=== PATIENT | male | born 1950 | race Caucasian/White ===

== ENCOUNTER 2017-02-13 11:25 | Inpatient (IN) | payer OTHER ==
[~2017-02-13] VITALS: Ht 172.7 cm; Wt 75.7 kg
--- NOTE | 2017-02-13 12:09 | PHYS DOC ---
Past Medical History Past Medical History: No Pertinent History Past Surgical History: No Surgical History Smoking: Cigarettes Alcohol Use: Occasionally Drug Use: None Adult General Chief Complaint Chief Complaint: SHORTNESS OF BREATH HPI HPI Patient is a 66 year old presents with right-sided chest pain and shortness of breath. This is a pleasant 66-year-old male who denies significant past medical history who presents with shortness of breath since Friday. He has been having a low-grade fever on Friday. He did not take his temperature however; the pain in the right side is constant. He has dyspnea on exertion. He has no pain in his extremities. It's constant, worse with cough. Radiate to his jaw or to his left shoulder. He does have a strong smoking history. He denies history of recent pneumonia. He denies sick contacts. He denies strong family history of coronary artery disease. His PMD is Dr. Lopes whom he has never seen. Review of Systems Review of Systems Constitutional: Feels as if he has had fever. Eyes: Denies change in visual acuity, redness, or eye pain./ HENT: Denies nasal congestion or sore throat. Respiratory: Cough which is non productuve. Cardiovascular: No additional information not addressed in HPI. GI: Denies abdominal pain, nausea, vomiting, bloody stools or diarrhea. : Denies dysuria or hematuria. Musculoskeletal: Denies back pain or joint pain. Integument: Denies rash or skin lesions. Neurologic: Denies headache, focal weakness or sensory changes. Endocrine: Denies polyuria or polydipsia. All other systems were reviewed and found to be within normal limits, except as documented in this note. Family History Family History No fam hx of CAD. Current Medications Current Medications Current Medications Medications (Trade) Dose Ordered Sig/Elly Start Time Stop Time Status Last Admin Dose Admin Albuterol Sulfate (Ventolin Neb Soln) 2.5 mg STK-MED ONCE 02/13/17 12:16 02/13/17 12:17 DC Azithromycin 250 ml @ 250 mls/hr 1X ONCE 02/13/17 13:00 02/13/17 13:59 DC 02/13/17 13:56 250 MLS/HR Ceftriaxone Sodium 50 ml @ 100 mls/hr 1X ONCE 02/13/17 13:00 02/13/17 13:29 DC 02/13/17 15:02 100 MLS/HR Allergies Allergies Allergies Coded Allergies Type Severity Reaction Last Updated Verified No Known Drug Allergies 02/13/17 No Physical Exam Physical Exam Constitutional: Well developed, well nourished, no acute distress, non-toxic appearance. HENT: Normocephalic, atraumatic, bilateral external ears normal, oropharynx moist, no oral exudates, nose normal. Eyes: PERRLA, EOMI, conjunctiva normal, no discharge. Neck: Normal range of motion, no tenderness, supple, no stridor. Cardiovascular:Heart rate regular rhythm, no murmur Lungs & Thorax: Bilateral breath sounds clear to auscultation. I do not appreciate wheezing or rales or rhonchi. Abdomen: Bowel sounds normal, soft, no tenderness, no masses, no pulsatile masses. Skin: Warm, dry, no erythema, no rash other than some rosacea to the nose. Back: No tenderness, no CVA tenderness. Extremities: No tenderness, no cyanosis, no clubbing, ROM intact, no edema. Nicotine stains tot he left 2 and 3 fingers. Neurologic: Alert and oriented X 3, normal motor function, normal sensory function, no focal deficits noted. Psychologic: Affect normal, judgement normal, mood normal. Current Patient Data Vital Signs Vital Signs Date Time Temp Pulse Resp B/P (MAP) Pulse Ox O2 Delivery O2 Flow Rate FiO2 02/13/17 13:58 99 28 95/60 (72) 90 Nasal Cannula 4.0 02/13/17 11:32 98.0 98.0 Lab Values Laboratory Tests Test 02/13/17 11:50 White Blood Count 34.8 x10^3/uL (4.0-11.0) H Red Blood Count 5.01 x10^6/uL (4.30-5.70) Hemoglobin 15.0 g/dL (13.0-17.5) Hematocrit 45.5 % (39.0-53.0) Mean Corpuscular Volume 91 fL (79-100) Mean Corpuscular Hemoglobin 30 pg (25-35) Mean Corpuscular Hemoglobin Concent 33 g/dL (31-37) Red Cell Distribution Width 13.8 % (11.5-14.5) Platelet Count 264 x10^3/uL (140-400) Neutrophils (%) (Auto) 93 % (31-73) H Lymphocytes (%) (Auto) 4 % (24-48) L Monocytes (%) (Auto) 3 % (0-9) Eosinophils (%) (Auto) 0 % (0-3) Basophils (%) (Auto) 0 % (0-3) Neutrophils # (Auto) 32.2 x10^3uL (1.8-7.7) H Lymphocytes # (Auto) 1.5 x10^3/uL (1.0-4.8) Monocytes # (Auto) 1.1 x10^3/uL (0.0-1.1) Eosinophils # (Auto) 0.0 x10^3/uL (0.0-0.7) Basophils # (Auto) 0.1 x10^3/uL (0.0-0.2) Segmented Neutrophils % 64 % (35-66) Band Neutrophils % 18 % (0-9) H Lymphocytes % 4 % (24-48) L Monocytes % 8 % (0-10) Metamyelocytes % 6 % (0-0) H Dohle Bodies Present Platelet Estimate Adequate (ADEQUATE) D-Dimer (Samantha) 1.36 ug/mlFEU (0.00-0.50) H Sodium Level 133 mmol/L (136-145) L Potassium Level 4.2 mmol/L (3.5-5.1) Chloride Level 96 mmol/L (98-107) L Carbon Dioxide Level 26 mmol/L (21-32) Anion Gap 11 (6-14) Blood Urea Nitrogen 31 mg/dL (8-26) H Creatinine 1.8 mg/dL (0.7-1.3) H Estimated GFR (Cockcroft-Gault) 37.9 BUN/Creatinine Ratio 17 (6-20) Glucose Level 97 mg/dL (70-99) Lactic Acid Level 3.5 mmol/L (0.4-2.0) H Calcium Level 8.8 mg/dL (8.5-10.1) Total Bilirubin 0.8 mg/dL (0.2-1.0) Aspartate Amino Transferase (AST) 21 U/L (15-37) Alanine Aminotransferase (ALT) 17 U/L (16-63) Alkaline Phosphatase 84 U/L (46-116) Troponin I Quantitative < 0.017 ng/mL (0.000-0.055) FW-Fmu-W-Type Natriuretic Peptide 978 pg/mL (0-124) H Total Protein 7.5 g/dL (6.4-8.2) Albumin 3.0 g/dL (3.4-5.0) L Albumin/Globulin Ratio 0.7 (1.0-1.7) L Lipase 54 U/L (73-393) L Laboratory Tests 02/13/17 11:50 Laboratory Tests 02/13/17 11:50 Microbiology 02/13/17 Blood Culture - Final, Complete EKG EKG NSR with LAD; rate of 97. No STEMI or ischemic changes. Done at 1132; int by m e at 12:05[] Radiology/Procedures Radiology/Procedures CXR RUL pneumonia int by radiologist[] Course & Med Decision Making Course & Med Decision Making Pertinent Labs and Imaging studies reviewed. (See chart for details) 12:10: Right sided CP with SOB and cough. WIll proceed with cardiac workup, will add d-dimer and xray. Will ask for RT protocol to see ig this helps, despite rather clear lung exam. Additionally will add BNP to assess for CHF, although he does not have any clinical stigmata of CHF on exam.[] RUL pneumonia. There is elevated lactic acid level however less than 4. I have initiated NS 2 L and will discuss with admitting team need for repeat lactic acid. Patient remains conversant and stable in the ER. 1543: D/W Dr. Florence who will follow up and trend lactic acid level. Dx: is pneumonia Britni Disclaimer Britni Disclaimer This electronic medical record was generated, in whole or in part, using a voice recognition dictation system. Departure Departure Referrals: NON,STAFF (PCP) JAMIE BATRES MD Feb 13, 2017 12:09
[2017-02-13 12:12] LABS: BASO # 0.1 x10^3/uL (0.0-0.2); BASO % 0 % (0-3); EOS % 0 % (0-3); HEMATOCRIT 45.5 % (39.0-53.0); LYMPH # 1.5 x10^3/uL (1.0-4.8); LYMPH % 4 % (24-48); MEAN CORPUSCULAR HEMOGLOBIN 30 pg (25-35); MEAN CORPUSCULAR HGB CONC 33 g/dL (31-37); MEAN CORPUSCULAR VOLUME 91 fL (79-100); MONO % 3 % (0-9); NEUT % 93 % (31-73); PLATELET COUNT 264 x10^3/uL (140-400); RED BLOOD COUNT 5.01 x10^6/uL (4.30-5.70); RED CELL DISTRIBUTION WIDTH 13.8 % (11.5-14.5); WHITE BLOOD COUNT 34.8 x10^3/uL (4.0-11.0)
[2017-02-13] MEDS ORDERED: ALBUTEROL SULFATE 2.5 MG/3 ML NEBU. NEB ONE (12:15)
[2017-02-13] MEDS ORDERED: ALBUTEROL SULFATE 2.5 MG/3 ML NEBU. ONE (12:16)
[2017-02-13 12:30] LABS: CALCIUM 8.8 mg/dL (8.5-10.1); CREATININE 1.8 mg/dL (0.7-1.3); GFR 37.9; POTASSIUM 4.2 mmol/L (3.5-5.1)
[2017-02-13 12:35] LABS: ALBUMIN/GLOBULIN RATIO 0.7 (1.0-1.7); TOTAL BILIRUBIN 0.8 mg/dL (0.2-1.0); TOTAL PROTEIN 7.5 g/dL (6.4-8.2)
--- NOTE | 2017-02-13 12:57 | RAD ---
Indication: Right chest pain for 3 days. Productive cough. Technique: Two-view chest radiograph was obtained. Comparison is from August 29, 2005. Findings: Right upper lobe consolidation is new from prior. There is mild right hilar fullness. Left lung is clear. There is no pleural effusion. Heart is not enlarged. Leads overlie the patient. Impression: Right upper lobe consolidation most compatible with pneumonia. Follow-up to document resolution is recommended to exclude underlying lesion or central obstructing lesion.
[2017-02-13] MEDS ORDERED: AZITHRMYCN 500MG IVPB FOR OMNI 250 ML IV ONE (13:00)
[2017-02-13 13:02] LABS: PLT ESTIMATE ADEQUATE (ADEQUATE)
--- NOTE | 2017-02-13 13:15 | EKG ---
[facility] [address] [place] [address] Test Date: 2017-02-13 Test Time: 11:32:11 Pat Name: ROSALINDA INMAN Department: Room: Gender: Adult Specialist: DC : 1950 Requested By: JAMIE BATRES Order Number: [id number] Reading MD: Aaron Tuttle MD Measurements Intervals [place] Rate: 97 P: 35 GA: 146 QRS: -30 QRSD: 78 T: 52 QT: 312 QTc: 400 Interpretive Statements SINUS RHYTHM NON-SPECIFIC ST/T CHANGES Electronically Signed On 02-18-2017 14:40:03 DIRECTOR SAFETY COUNCIL by Aaron Tuttle MD
[2017-02-13] MEDS: IV NORMAL SALINE 1000ML BAG 1,000 ML IV SCH ×2 (15:08→16:12)
[2017-02-13] MEDS: IBUPROFEN 400 MG TABLET. PO PRN ×2 (15:50→22:41)
[2017-02-13 16:00] VITALS: BP 100/65
[2017-02-13] MEDS ORDERED: PNEUMOCOCCAL VAX SCREEN BY RX. MC PRN (17:45)
[2017-02-13] MEDS ORDERED: INFLUENZA VAX SCREEN BY RX. MC PRN (17:45)
[2017-02-13] MEDS ORDERED: FLU VACC QS2017-18 (36MOS+)/PF 0.5 ML SYRINGE. VAX IM ONE (18:00)
--- NOTE | 2017-02-13 19:27 | HP ---
ADMIT DATE: 02/13/2017 CHIEF COMPLAINT: Shortness of breath. HISTORY OF PRESENT ILLNESS: The patient is a 66-year-old smoker without any medical problems who presented to the Emergency Room with a 4-day history of shortness of breath. He relates that he became more short of breath on Friday with cough productive of yellowish sputum. Also, had subjective fevers and chills and noticed that in the beginning, he actually had shoulder pain in the area of his clavicle. This actually slipped down anteriorly on his chest wall, is worse with deep breathing. This has responded well to ibuprofen that he received here in the hospital. In the Emergency Room, he was evaluated and x-ray revealed right upper lobe consolidation and he was admitted for treatment of pneumonia. PAST MEDICAL HISTORY: None. Has not seen a physician for many years. FAMILY HISTORY: No heart disease or lung disease known. 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 Smokes 1-1/2 packs a day. Denies any alcohol or drug use. ALLERGIES: No known drug allergies. HOME MEDICATIONS: None. REVIEW OF SYSTEMS: Positive as per HPI. He denies any nausea, vomiting, abdominal pain, any headaches, vision problems. Rest of his entire organ system review is answered negatively as well. PHYSICAL EXAMINATION: VITAL SIGNS: From today show a blood pressure of 100/65, heart rate of 101, respiratory rate at 26. He is afebrile. GENERAL: This is a well-nourished 66-year-old gentleman, alert and oriented, in no acute distress. HEENT: Shows no scleral icterus. NECK: Supple. LUNGS: Coarse, but with good air movement. HEART: Slightly tachycardic. ABDOMEN: Has positive bowel sounds, soft, nontender. EXTREMITIES: Show no edema, no clubbing, no cyanosis. SKIN: Warm, soft and dry without any rash. LABORATORY DATA: CBC with a WBC of 34.8, hemoglobin 15, platelets of 264. Chemistries with a BUN and creatinine of 31 and 1.8, sodium at 133, potassium at 4.3, lactate at 3.5, on repeat 2.3, albumin at 3.0 with normal LFTs otherwise. IMAGING: Shows a chest x-ray with a right upper lobe consolidation, right hilar fullness. Left lung is clear. ASSESSMENT AND PLAN: The patient is a 66-year-old smoker who presents with right upper lobe pneumonia. He has been started on antibiotics with ceftriaxone and azithromycin. We will continue for the time being. For his pleuritis type chest pain, he has been given ibuprofen with good results. We will continue this. He may have [place] as well as a second choice. We will start nebulizer treatments. Hold off on steroids for the time being. Monitor his WBC, which actually indicates good response of his bone marrow. We will consult Pulmonology in the morning. For his smoking, he declines patch for right now. He has been counseled about cessation of tobacco use. For prophylaxis, he will be started on proton pump inhibitor as well as Lovenox. MARYANNE SINGH MD DR: UR/nts JOB#: [id number] / [id number] MEL
[2017-02-13 19:30] VITALS: BP 84/58
[2017-02-13] MEDS: IPRATRPIUM/ALBUTEROL 0.5/2.5MG 3 ML NEBU. NEB SCH (20:03)
[2017-02-13 23:30] VITALS: BP 82/57
[2017-02-14 03:30] VITALS: BP 99/69
[2017-02-14 05:33] LABS: BASO # 0.1 x10^3/uL (0.0-0.2); BASO % 0 % (0-3); EOS % 0 % (0-3); HEMATOCRIT 39.3 % (39.0-53.0); HEMOGLOBIN 12.6 g/dL (13.0-17.5); LYMPH # 1.1 x10^3/uL (1.0-4.8); LYMPH % 4 % (24-48); MEAN CORPUSCULAR HEMOGLOBIN 30 pg (25-35); MEAN CORPUSCULAR HGB CONC 32 g/dL (31-37); MEAN CORPUSCULAR VOLUME 93 fL (79-100); MONO % 3 % (0-9); NEUT % 93 % (31-73); PLATELET COUNT 213 x10^3/uL (140-400); RED BLOOD COUNT 4.23 x10^6/uL (4.30-5.70); RED CELL DISTRIBUTION WIDTH 14.1 % (11.5-14.5); WHITE BLOOD COUNT 30.8 x10^3/uL (4.0-11.0)
[2017-02-14 06:10] LABS: CALCIUM 7.9 mg/dL (8.5-10.1); CREATININE 1.4 mg/dL (0.7-1.3); GFR 50.7
[2017-02-14 07:00] VITALS: BP 90/60
[2017-02-14 07:22] LABS: CALCIUM 8.3 mg/dL (8.5-10.1)
[2017-02-14 07:23] LABS: CREATININE 0.9 mg/dL (0.7-1.3); GFR 84.4; POTASSIUM 4.1 mmol/L (3.5-5.1)
[2017-02-14] MEDS: IPRATRPIUM/ALBUTEROL 0.5/2.5MG 3 ML NEBU. NEB SCH ×4 (08:30→20:21)
[2017-02-14] MEDS ORDERED: VANCOMYCIN PER PHARMACY MC PRN (08:45)
[2017-02-14] MEDS ORDERED: VANCOMYCIN 1.75 GM in IV DEXTROSE 5 %-0.45 % NACL 500 ML IV ONE (09:00)
--- NOTE | 2017-02-14 10:03 | PDOC ---
Infectious Disease Note Vital Sign Vital Signs Vital Signs Date Time Temp Pulse Resp B/P (MAP) Pulse Ox O2 Delivery O2 Flow Rate FiO2 02/14/17 08:32 96 Nasal Cannula 3.5 02/14/17 07:00 97.5 80 18 90/60 (70) 97.5 Labs Lab Laboratory Tests Test 02/13/17 11:50 02/13/17 17:45 02/14/17 05:15 02/14/17 06:16 White Blood Count 34.8 x10^3/uL (4.0-11.0) 30.8 x10^3/uL (4.0-11.0) Red Blood Count 5.01 x10^6/uL (4.30-5.70) 4.23 x10^6/uL (4.30-5.70) Hemoglobin 15.0 g/dL (13.0-17.5) 12.6 g/dL (13.0-17.5) Hematocrit 45.5 % (39.0-53.0) 39.3 % (39.0-53.0) Mean Corpuscular Volume 91 fL (79-100) 93 fL (79-100) Mean Corpuscular Hemoglobin 30 pg (25-35) 30 pg (25-35) Mean Corpuscular Hemoglobin Concent 33 g/dL (31-37) 32 g/dL (31-37) Red Cell Distribution Width 13.8 % (11.5-14.5) 14.1 % (11.5-14.5) Platelet Count 264 x10^3/uL (140-400) 213 x10^3/uL (140-400) Neutrophils (%) (Auto) 93 % (31-73) 93 % (31-73) Lymphocytes (%) (Auto) 4 % (24-48) 4 % (24-48) Monocytes (%) (Auto) 3 % (0-9) 3 % (0-9) Eosinophils (%) (Auto) 0 % (0-3) 0 % (0-3) Basophils (%) (Auto) 0 % (0-3) 0 % (0-3) Neutrophils # (Auto) 32.2 x10^3uL (1.8-7.7) 28.7 x10^3uL (1.8-7.7) Lymphocytes # (Auto) 1.5 x10^3/uL (1.0-4.8) 1.1 x10^3/uL (1.0-4.8) Monocytes # (Auto) 1.1 x10^3/uL (0.0-1.1) 0.9 x10^3/uL (0.0-1.1) Eosinophils # (Auto) 0.0 x10^3/uL (0.0-0.7) 0.0 x10^3/uL (0.0-0.7) Basophils # (Auto) 0.1 x10^3/uL (0.0-0.2) 0.1 x10^3/uL (0.0-0.2) Segmented Neutrophils % 64 % (35-66) Band Neutrophils % 18 % (0-9) Lymphocytes % 4 % (24-48) Monocytes % 8 % (0-10) Metamyelocytes % 6 % (0-0) Dohle Bodies Present Platelet Estimate Adequate (ADEQUATE) D-Dimer (Samantha) 1.36 ug/mlFEU (0.00-0.50) Sodium Level 133 mmol/L (136-145) 137 mmol/L (136-145) Potassium Level 4.2 mmol/L (3.5-5.1) 4.0 mmol/L (3.5-5.1) Chloride Level 96 mmol/L (98-107) 99 mmol/L (98-107) Carbon Dioxide Level 26 mmol/L (21-32) 21 mmol/L (21-32) Anion Gap 11 (6-14) 17 (6-14) Blood Urea Nitrogen 31 mg/dL (8-26) 33 mg/dL (8-26) Creatinine 1.8 mg/dL (0.7-1.3) 1.4 mg/dL (0.7-1.3) Estimated GFR (Cockcroft-Gault) 37.9 50.7 BUN/Creatinine Ratio 17 (6-20) Glucose Level 97 mg/dL (70-99) 14 mg/dL (70-99) Lactic Acid Level 3.5 mmol/L (0.4-2.0) 2.3 mmol/L (0.4-2.0) Calcium Level 8.8 mg/dL (8.5-10.1) 7.9 mg/dL (8.5-10.1) Total Bilirubin 0.8 mg/dL (0.2-1.0) Aspartate Amino Transf (AST/SGOT) 21 U/L (15-37) Alanine Aminotransferase (ALT/SGPT) 17 U/L (16-63) Alkaline Phosphatase 84 U/L (46-116) Troponin I Quantitative < 0.017 ng/mL (0.000-0.055) PU-Dhp-R-Type Natriuretic Peptide 978 pg/mL (0-124) Total Protein 7.5 g/dL (6.4-8.2) Albumin 3.0 g/dL (3.4-5.0) Albumin/Globulin Ratio 0.7 (1.0-1.7) Lipase 54 U/L (73-393) Glucose (Fingerstick) 90 mg/dL (70-99) Test 02/14/17 06:45 Sodium Level 139 mmol/L (136-145) Potassium Level 4.1 mmol/L (3.5-5.1) Chloride Level 104 mmol/L (98-107) Carbon Dioxide Level 23 mmol/L (21-32) Anion Gap 12 (6-14) Blood Urea Nitrogen 26 mg/dL (8-26) Creatinine 0.9 mg/dL (0.7-1.3) Estimated GFR (Cockcroft-Gault) 84.4 Glucose Level 98 mg/dL (70-99) Calcium Level 8.3 mg/dL (8.5-10.1) Objective Assessment CAP Leukocytosis Smoker Fever Hypoxia BC + with G + cocci , strep Plan Plan of Care cont fidencio and danny claros/ady robbinsro await culture results and adjust supportive care adv to quit smoking DELORIS JOE MD Feb 14, 2017 10:03
[2017-02-14 11:00] VITALS: BP 97/64
[2017-02-14] MEDS: NICOTINE 21MG PATCH. TD SCH (11:13)
--- NOTE | 2017-02-14 13:52 | PDOC ---
PROGRESS NOTES Chief Complaint Chief Complaint Acute hypoxic respir failure ASSESSMENT AND PLAN: 1. [facility] PNA: on levaquin; nebs, suppl O2 2. Bacteremia: GPC in 03/06 bottles. ?contaminant. for now, start vanco. ID consult. await final culture 3. Chest pain: pleuritis, responding well to NSAIDs. [place] available 4. Leukocytosis: exuberant response. monitor 5. tobaccoism: nicotine patch. cessation again strongly encouraged 6. prevention: lovenox, PPI History of Present Illness History of Present Illness feels better, eager to go home. pleuritic CP responding to ibuprofen Vitals Vitals Vital Signs Date Time Temp Pulse Resp B/P (MAP) Pulse Ox O2 Delivery O2 Flow Rate FiO2 02/14/17 12: Nasal Cannula 3.5 02/14/17 11:00 98.0 80 18 97/64 (75) 95 98.0 Physical Exam General: Alert, Oriented X3, Cooperative, No acute distress Heart: Regular rate Lungs: Crackles Abdomen: Normal bowel sounds, Soft, No tenderness Extremities: No edema Skin: No rashes Labs LABS Laboratory Tests Test 02/13/17 17:45 02/14/17 05:15 02/14/17 06:16 02/14/17 06:45 Lactic Acid Level 2.3 mmol/L (0.4-2.0) White Blood Count 30.8 x10^3/uL (4.0-11.0) Red Blood Count 4.23 x10^6/uL (4.30-5.70) Hemoglobin 12.6 g/dL (13.0-17.5) Hematocrit 39.3 % (39.0-53.0) Mean Corpuscular Volume 93 fL (79-100) Mean Corpuscular Hemoglobin 30 pg (25-35) Mean Corpuscular Hemoglobin Concent 32 g/dL (31-37) Red Cell Distribution Width 14.1 % (11.5-14.5) Platelet Count 213 x10^3/uL (140-400) Neutrophils (%) (Auto) 93 % (31-73) Lymphocytes (%) (Auto) 4 % (24-48) Monocytes (%) (Auto) 3 % (0-9) Eosinophils (%) (Auto) 0 % (0-3) Basophils (%) (Auto) 0 % (0-3) Neutrophils # (Auto) 28.7 x10^3uL (1.8-7.7) Lymphocytes # (Auto) 1.1 x10^3/uL (1.0-4.8) Monocytes # (Auto) 0.9 x10^3/uL (0.0-1.1) Eosinophils # (Auto) 0.0 x10^3/uL (0.0-0.7) Basophils # (Auto) 0.1 x10^3/uL (0.0-0.2) Sodium Level 137 mmol/L (136-145) 139 mmol/L (136-145) Potassium Level 4.0 mmol/L (3.5-5.1) 4.1 mmol/L (3.5-5.1) Chloride Level 99 mmol/L (98-107) 104 mmol/L (98-107) Carbon Dioxide Level 21 mmol/L (21-32) 23 mmol/L (21-32) Anion Gap 17 (6-14) 12 (6-14) Blood Urea Nitrogen 33 mg/dL (8-26) 26 mg/dL (8-26) Creatinine 1.4 mg/dL (0.7-1.3) 0.9 mg/dL (0.7-1.3) Estimated GFR (Cockcroft-Gault) 50.7 84.4 Glucose Level 14 mg/dL (70-99) 98 mg/dL (70-99) Calcium Level 7.9 mg/dL (8.5-10.1) 8.3 mg/dL (8.5-10.1) Glucose (Fingerstick) 90 mg/dL (70-99) MARYANNE SINGH MD Feb 14, 2017 13:52
--- NOTE | 2017-02-14 14:17 | CONS ---
DATE OF CONSULTATION: ATTENDING PHYSICIAN: Dr. Florence. REASON FOR CONSULTATION: Pneumonia, respiratory failure. HISTORY OF PRESENT ILLNESS: The patient is a 66-year-old male who has a long history of tobacco use. He presented to the hospital with a 4-day history of shortness of breath. He also has a cough which is productive of yellow sputum. He has some subjective fever at home. The patient was also complaining of shoulder pain. He had a chest x-ray performed, which was reviewed by me and it shows consolidation in the right upper lobe and also some right hilar fullness. He denied any chronicity of the cough, denied any weight loss or night sweats. The patient's white cell count was markedly elevated on admission, was 34,000, which is now slowly down to 30,000. He also had a glucose of 40, now it is 98 and a BUN of 33 and creatinine of 1.0, which is responding to fluids. PAST MEDICAL HISTORY: Significant for suspected COPD. SOCIAL HISTORY: He smoked 1-1/2 packs per day for at least 35-40 years. No history of alcohol or drug use. PAST SURGICAL HISTORY: No recent surgeries. ALLERGIES: None. CURRENT MEDICATIONS: Reviewed as listed in the MRAD. REVIEW OF SYSTEMS: A 12-point system obtained. Pertinent positives discussed in history of present illness, otherwise noncontributory. All systems that were negative were reviewed as well. He has no headache, no nausea or vomiting, no diarrhea. Had no weight loss. PHYSICAL EXAMINATION: VITAL SIGNS: He is afebrile. His blood pressure was 82, now it is 97/64, pulse ox 95% on 4 liters. HEENT: Sclerae nonicteric. NECK: Supple. LUNGS: Diminished breath sounds. CARDIOVASCULAR: Regular rate and rhythm. ABDOMEN: Soft, nontender. EXTREMITIES: With no pitting edema. LABORATORY DATA: Reviewed. White cell count was 34.8, now it is trending down to 31. BUN and creatinine is improving as well. Calcium is 7.9. IMPRESSION: 1. Community-acquired extensive right upper lobe pneumonia. 2. Acute hypoxic respiratory failure secondary to community-acquired pneumonia. 3. Abnormal chest x-ray with right upper lobe consolidation, right hilar fullness. Less likely postobstructive process, but we will do a CT chest with contrast. 4. Suspected underlying chronic obstructive pulmonary disease. 5. Bacteremia, suspected strep. RECOMMENDATIONS: 1. Continue with present broad-spectrum antibiotics. 2. Consider Infectious Disease consultation. 3. CT chest to rule out any right hilar mass. 4. We will follow the response to antibiotics with chest x-ray in 3-4 days. 5. Bronchodilators. 6. Outpatient full pulmonary function test. 7. Smoking cessation counseling provided. 8. Discussed with the patient's and will follow along with you. FLORINA VILLALTA MD DR: VIRIDIANA/diego JOB#: [id number] / [id number]
[2017-02-14] MEDS ORDERED: CONTRAST GIVEN MC PRN (14:30)
[2017-02-14] MEDS ORDERED: IOHEXOL 300 MG/ML 100ML VIAL. IV ONE (14:30)
[2017-02-14] MEDS: IBUPROFEN 400 MG TABLET. PO PRN ×2 (14:48→20:51)
--- NOTE | 2017-02-14 15:14 | RAD ---
CT of the chest with contrast, 02/14/2017: History: Pneumonia, respiratory failure, right hilar mass Multidetector CT imaging was performed following an IV bolus injection of iodinated contrast material. There is extensive pulmonary infiltrate in the inferior aspect of the right upper lobe. There are multiple air bronchograms. The central right upper lobe bronchi do not appear obstructed. There is a lesser degree of infiltrate in the superior aspect of the right middle lobe. A small right pleural effusion is present. There is moderate atelectasis in the right lower lobe. Emphysematous blebs and small bullae are present in both lungs. No significant left pulmonary infiltrate or pleural fluid is evident. There are scattered calcific plaques in the aorta without evidence of aneurysm. The ascending aorta measures 3.9 cm in width. A couple of minimal coronary artery calcifications are noted. Precarinal and subcarinal lymph nodes of borderline size are noted. The largest of these demonstrate a short axis dimension of approximately 10 mm. IMPRESSION: 1. Extensive right lung infiltrate with dominant involvement of the right upper lobe, compatible with pneumonia. No centrally obstructing mass is seen. Further imaging follow-up is suggested to exclude an occult neoplasm. 2. Small right pleural effusion with moderate right basilar atelectasis. 3. Emphysema. 4. Borderline enlarged mediastinal lymph nodes are probably reactive. PQRS Compliance Statement: One or more of the following individualized dose reduction techniques were utilized for this examination: 1. Automated exposure control 2. Adjustment of the mA and/or kV according to patient size 3. Use of iterative reconstruction technique
[2017-02-14] MEDS ORDERED: AZITHROMYCIN 500 MG in IV NORMAL SALINE 250ML 250 ML IV SCH (16:00)
[2017-02-14 16:13] VITALS: BP 98/64
--- NOTE | 2017-02-14 17:22 | CONS ---
DATE OF CONSULTATION: 02/14/2017 REQUESTING PHYSICIAN: Dr. Florence. REASON FOR CONSULTATION: Pneumonia and blood culture positive. HISTORY OF PRESENT ILLNESS: This is a 66-year-old gentleman who does not go to the doctor's office who came in with right-sided chest pain, little bit of shortness of breath. He has had fever at home. The patient was found to have pneumonia, admitted, started on azithromycin, Rocephin was given and then Levaquin has been put on. The blood culture turned positive, hence the vancomycin has been added. The patient denies any nausea, vomiting, diarrhea. Denies any headache, visual symptoms. He does have chest pain. He does have shortness of breath. He has been hypoxic requiring oxygen support. Denies any abdominal pain, urinary symptoms or bowel symptoms. PAST MEDICAL HISTORY: Essentially unremarkable as he has never been into the hospital. He does not go regularly to the doctor's office. He does not remember when was the last time he had any antibiotics. SOCIAL HISTORY: Positive for smoking. No alcohol use or drug use. ALLERGIES: No known drug allergies. CURRENT MEDICATIONS: Reviewed. REVIEW OF SYSTEMS: As per HPI, all other systems reviewed and are negative. PHYSICAL EXAMINATION: GENERAL: Alert, oriented gentleman, not in distress. VITAL SIGNS: Stable, afebrile here. HEENT: NAD. NECK: Supple, no JVP, no lymphadenopathy. LUNGS: Clear. HEART: S1, S2 regular. No gallop or murmur. ABDOMEN: Soft, nontender, no organomegaly. EXTREMITIES: No edema, cyanosis. SKIN: Unremarkable. NEUROLOGIC: The patient is neurologically intact. LABORATORY DATA: White count is 34,000 when he came in, now down to 30,000. BUN and creatinine is normal, although they were higher when he came in. Glucose was low. Blood culture 1 out of 4 positive with Gram-positive cocci in chains. Chest x-ray is showing extensive right upper lobe infiltrate. IMPRESSION: 1. Community-acquired pneumonia. 2. Fever and leukocytosis. 3. Hypoxemia. 4. Tobaccoism. 5. Dehydration with elevated BUN and creatinine, which is improving. RECOMMENDATION: Would continue Levaquin and vancomycin. We will discontinue azithromycin and Rocephin has been discontinued. We will await identification of the organism and adjust breathing treatment to open up to be able to get the sputum out. Supportive care and strongly advised to quit smoking. Thank you very much, Dr. Florence, for giving me the opportunity to participate in this patient's care. DELORIS JOE MD DR: ALETHEA/diego JOB#: [id number] / [id number]
[2017-02-14 19:46] VITALS: BP 114/74
[2017-02-14] MEDS: LACTOBACILLUS RHAMNOSUS GG 1 CAPSULE. PO SCH (20:51)
[2017-02-14] MEDS: VANCOMYCIN 1 GM in IV 1/2 NORMAL SALINE 250 ML IV SCH (20:54)
[2017-02-14 23:57] VITALS: BP 125/85
[2017-02-15 03:51] VITALS: BP 112/65
[2017-02-15 07:00] VITALS: BP 132/73
[2017-02-15 07:40] LABS: BASO % 0 % (0-3); EOS % 1 % (0-3); HEMATOCRIT 37.8 % (39.0-53.0); HEMOGLOBIN 12.5 g/dL (13.0-17.5); LYMPH # 1.6 x10^3/uL (1.0-4.8); LYMPH % 11 % (24-48); MEAN CORPUSCULAR HEMOGLOBIN 30 pg (25-35); MEAN CORPUSCULAR HGB CONC 33 g/dL (31-37); MEAN CORPUSCULAR VOLUME 90 fL (79-100); MONO % 8 % (0-9); NEUT % 81 % (31-73); PLATELET COUNT 252 x10^3/uL (140-400); RED BLOOD COUNT 4.22 x10^6/uL (4.30-5.70); RED CELL DISTRIBUTION WIDTH 13.6 % (11.5-14.5); WHITE BLOOD COUNT 15.4 x10^3/uL (4.0-11.0)
[2017-02-15 07:57] LABS: CALCIUM 8.5 mg/dL (8.5-10.1); CREATININE 0.8 mg/dL (0.7-1.3); GFR 96.7; POTASSIUM 3.7 mmol/L (3.5-5.1)
[2017-02-15] MEDS: IPRATRPIUM/ALBUTEROL 0.5/2.5MG 3 ML NEBU. NEB SCH ×5 (08:16→19:49)
[2017-02-15] MEDS: LACTOBACILLUS RHAMNOSUS GG 1 CAPSULE. PO SCH ×2 (08:54→21:40)
[2017-02-15] MEDS: NICOTINE 21MG PATCH. TD SCH (08:55)
[2017-02-15] MEDS: VANCOMYCIN 1 GM in IV 1/2 NORMAL SALINE 250 ML IV SCH (08:56)
[2017-02-15] MEDS ORDERED: CIPR500T94 PO ×2 (09:54→09:59)
[2017-02-15] MEDS ORDERED: IPRA4AER IH (09:54)
--- NOTE | 2017-02-15 10:23 | PDOC ---
PULMONARY PROGRESS NOTES Subjective feels better Vitals Vital Signs Date Time Temp Pulse Resp B/P (MAP) Pulse Ox O2 Delivery O2 Flow Rate FiO2 02/15/17 08:10 98 Nasal Cannula 3.5 02/15/17 07:00 97.3 83 18 132/73 (92) 97.3 ROS: No Nausea, No Chest Pain, No Abdominal Pain, No Increase Cough General: Alert, No acute distress Lungs: Other (decrease right) Cardiovascular: S1 Abdomen: Soft Neuro Exam: Alert Extremities: No Edema Skin: Warm Labs Laboratory Tests Test 02/13/17 11:50 02/13/17 17:45 02/14/17 05:15 02/14/17 06:16 White Blood Count 34.8 x10^3/uL (4.0-11.0) 30.8 x10^3/uL (4.0-11.0) Red Blood Count 5.01 x10^6/uL (4.30-5.70) 4.23 x10^6/uL (4.30-5.70) Hemoglobin 15.0 g/dL (13.0-17.5) 12.6 g/dL (13.0-17.5) Hematocrit 45.5 % (39.0-53.0) 39.3 % (39.0-53.0) Mean Corpuscular Volume 91 fL (79-100) 93 fL (79-100) Mean Corpuscular Hemoglobin 30 pg (25-35) 30 pg (25-35) Mean Corpuscular Hemoglobin Concent 33 g/dL (31-37) 32 g/dL (31-37) Red Cell Distribution Width 13.8 % (11.5-14.5) 14.1 % (11.5-14.5) Platelet Count 264 x10^3/uL (140-400) 213 x10^3/uL (140-400) Neutrophils (%) (Auto) 93 % (31-73) 93 % (31-73) Lymphocytes (%) (Auto) 4 % (24-48) 4 % (24-48) Monocytes (%) (Auto) 3 % (0-9) 3 % (0-9) Eosinophils (%) (Auto) 0 % (0-3) 0 % (0-3) Basophils (%) (Auto) 0 % (0-3) 0 % (0-3) Neutrophils # (Auto) 32.2 x10^3uL (1.8-7.7) 28.7 x10^3uL (1.8-7.7) Lymphocytes # (Auto) 1.5 x10^3/uL (1.0-4.8) 1.1 x10^3/uL (1.0-4.8) Monocytes # (Auto) 1.1 x10^3/uL (0.0-1.1) 0.9 x10^3/uL (0.0-1.1) Eosinophils # (Auto) 0.0 x10^3/uL (0.0-0.7) 0.0 x10^3/uL (0.0-0.7) Basophils # (Auto) 0.1 x10^3/uL (0.0-0.2) 0.1 x10^3/uL (0.0-0.2) Segmented Neutrophils % 64 % (35-66) Band Neutrophils % 18 % (0-9) Lymphocytes % 4 % (24-48) Monocytes % 8 % (0-10) Metamyelocytes % 6 % (0-0) Dohle Bodies Present Platelet Estimate Adequate (ADEQUATE) D-Dimer (Samantha) 1.36 ug/mlFEU (0.00-0.50) Sodium Level 133 mmol/L (136-145) 137 mmol/L (136-145) Potassium Level 4.2 mmol/L (3.5-5.1) 4.0 mmol/L (3.5-5.1) Chloride Level 96 mmol/L (98-107) 99 mmol/L (98-107) Carbon Dioxide Level 26 mmol/L (21-32) 21 mmol/L (21-32) Anion Gap 11 (6-14) 17 (6-14) Blood Urea Nitrogen 31 mg/dL (8-26) 33 mg/dL (8-26) Creatinine 1.8 mg/dL (0.7-1.3) 1.4 mg/dL (0.7-1.3) Estimated GFR (Cockcroft-Gault) 37.9 50.7 BUN/Creatinine Ratio 17 (6-20) Glucose Level 97 mg/dL (70-99) 14 mg/dL (70-99) Lactic Acid Level 3.5 mmol/L (0.4-2.0) 2.3 mmol/L (0.4-2.0) Calcium Level 8.8 mg/dL (8.5-10.1) 7.9 mg/dL (8.5-10.1) Total Bilirubin 0.8 mg/dL (0.2-1.0) Aspartate Amino Transf (AST/SGOT) 21 U/L (15-37) Alanine Aminotransferase (ALT/SGPT) 17 U/L (16-63) Alkaline Phosphatase 84 U/L (46-116) Troponin I Quantitative < 0.017 ng/mL (0.000-0.055) IY-Ctl-C-Type Natriuretic Peptide 978 pg/mL (0-124) Total Protein 7.5 g/dL (6.4-8.2) Albumin 3.0 g/dL (3.4-5.0) Albumin/Globulin Ratio 0.7 (1.0-1.7) Lipase 54 U/L (73-393) Glucose (Fingerstick) 90 mg/dL (70-99) Test 02/14/17 06:45 02/15/17 07:15 Sodium Level 139 mmol/L (136-145) 138 mmol/L (136-145) Potassium Level 4.1 mmol/L (3.5-5.1) 3.7 mmol/L (3.5-5.1) Chloride Level 104 mmol/L (98-107) 104 mmol/L (98-107) Carbon Dioxide Level 23 mmol/L (21-32) 27 mmol/L (21-32) Anion Gap 12 (6-14) 7 (6-14) Blood Urea Nitrogen 26 mg/dL (8-26) 11 mg/dL (8-26) Creatinine 0.9 mg/dL (0.7-1.3) 0.8 mg/dL (0.7-1.3) Estimated GFR (Cockcroft-Gault) 84.4 96.7 Glucose Level 98 mg/dL (70-99) 103 mg/dL (70-99) Calcium Level 8.3 mg/dL (8.5-10.1) 8.5 mg/dL (8.5-10.1) White Blood Count 15.4 x10^3/uL (4.0-11.0) Red Blood Count 4.22 x10^6/uL (4.30-5.70) Hemoglobin 12.5 g/dL (13.0-17.5) Hematocrit 37.8 % (39.0-53.0) Mean Corpuscular Volume 90 fL (79-100) Mean Corpuscular Hemoglobin 30 pg (25-35) Mean Corpuscular Hemoglobin Concent 33 g/dL (31-37) Red Cell Distribution Width 13.6 % (11.5-14.5) Platelet Count 252 x10^3/uL (140-400) Neutrophils (%) (Auto) 81 % (31-73) Lymphocytes (%) (Auto) 11 % (24-48) Monocytes (%) (Auto) 8 % (0-9) Eosinophils (%) (Auto) 1 % (0-3) Basophils (%) (Auto) 0 % (0-3) Neutrophils # (Auto) 12.4 x10^3uL (1.8-7.7) Lymphocytes # (Auto) 1.6 x10^3/uL (1.0-4.8) Monocytes # (Auto) 1.2 x10^3/uL (0.0-1.1) Eosinophils # (Auto) 0.1 x10^3/uL (0.0-0.7) Basophils # (Auto) 0.0 x10^3/uL (0.0-0.2) Laboratory Tests Test 02/15/17 07:15 White Blood Count 15.4 x10^3/uL (4.0-11.0) Red Blood Count 4.22 x10^6/uL (4.30-5.70) Hemoglobin 12.5 g/dL (13.0-17.5) Hematocrit 37.8 % (39.0-53.0) Mean Corpuscular Volume 90 fL (79-100) Mean Corpuscular Hemoglobin 30 pg (25-35) Mean Corpuscular Hemoglobin Concent 33 g/dL (31-37) Red Cell Distribution Width 13.6 % (11.5-14.5) Platelet Count 252 x10^3/uL (140-400) Neutrophils (%) (Auto) 81 % (31-73) Lymphocytes (%) (Auto) 11 % (24-48) Monocytes (%) (Auto) 8 % (0-9) Eosinophils (%) (Auto) 1 % (0-3) Basophils (%) (Auto) 0 % (0-3) Neutrophils # (Auto) 12.4 x10^3uL (1.8-7.7) Lymphocytes # (Auto) 1.6 x10^3/uL (1.0-4.8) Monocytes # (Auto) 1.2 x10^3/uL (0.0-1.1) Eosinophils # (Auto) 0.1 x10^3/uL (0.0-0.7) Basophils # (Auto) 0.0 x10^3/uL (0.0-0.2) Sodium Level 138 mmol/L (136-145) Potassium Level 3.7 mmol/L (3.5-5.1) Chloride Level 104 mmol/L (98-107) Carbon Dioxide Level 27 mmol/L (21-32) Anion Gap 7 (6-14) Blood Urea Nitrogen 11 mg/dL (8-26) Creatinine 0.8 mg/dL (0.7-1.3) Estimated GFR (Cockcroft-Gault) 96.7 Glucose Level 103 mg/dL (70-99) Calcium Level 8.5 mg/dL (8.5-10.1) Medications Active Scripts Medications Dose Route/Sig Max Daily Dose Days Date Category Cipro (Ciprofloxacin Hcl) 500 Mg Tablet 1 Tab PO BID 02/15/17 Rx Combivent Respimat Inhal (Ipratropium/Albuterol Sulfate) 4 Gm Aer.w.adap 1 Inh IH QID 02/15/[address] CHEST 1. Extensive right lung infiltrate with dominant involvement of the right upper lobe, compatible with pneumonia. No centrally obstructing mass is seen. Further imaging follow-up is suggested to exclude an occult neoplasm. 2. Small right pleural effusion with moderate right basilar atelectasis. 3. Emphysema. 4. Borderline enlarged mediastinal lymph nodes are probably reactive. Impression . 1. Community-acquired extensive right upper lobe pneumonia. 2. Acute hypoxic respiratory failure secondary to community-acquired pneumonia. 3. Abnormal chest x-ray with right upper lobe consolidation, right hilar fullness. Less likely postobstructive process, CT chest reviewed, no central mass 4. Suspected underlying chronic obstructive pulmonary disease. 5. Bacteremia, strep.pneumo Plan . 1. Continue with present broad-spectrum antibiotics per ID 2. follow Infectious Disease recommendations 3. f/u cxr in 3 days 4. We will follow the response to antibiotics 5. Bronchodilators. 6. Outpatient full pulmonary function test. 7. Smoking cessation counseling provided. 8. Discussed with the patient's and will follow along with you. FLORINA VILLALTA MD Feb 15, 2017 10:22
[2017-02-15 11:00] VITALS: BP 135/75
--- NOTE | 2017-02-15 13:26 | PDOC ---
PROGRESS NOTES Chief Complaint Chief Complaint Acute hypoxic respir failure 1. [place] PNA: on levaquin; nebs, suppl O2, change to PO 2. Bacteremia: GPC in 03/06 bottles. strep pneumo, prob from PNA 3. Chest pain: pleuritis, responding well to NSAIDs. [place] available 4. Leukocytosis: exuberant response. monitor 5. tobaccoism: nicotine patch. cessation again strongly encouraged 6. prevention: lovenox, PPI History of Present Illness History of Present Illness feels better, eager to go home soon pain better, failure on six minute walk, Desat to 85% rest Vitals Vitals Vital Signs Date Time Temp Pulse Resp B/P (MAP) Pulse Ox O2 Delivery O2 Flow Rate FiO2 02/15/17 12:10 96 Nasal Cannula 3.5 02/15/17 11:00 97.4 75 16 135/75 (95) 97.4 Physical Exam General: Alert, Oriented X3, Cooperative, No acute distress Heart: Regular rate Lungs: Other (decrease right) Abdomen: Normal bowel sounds, Soft, No tenderness Extremities: No edema Skin: No rashes Labs LABS Laboratory Tests Test 02/15/17 07:15 White Blood Count 15.4 x10^3/uL (4.0-11.0) Red Blood Count 4.22 x10^6/uL (4.30-5.70) Hemoglobin 12.5 g/dL (13.0-17.5) Hematocrit 37.8 % (39.0-53.0) Mean Corpuscular Volume 90 fL (79-100) Mean Corpuscular Hemoglobin 30 pg (25-35) Mean Corpuscular Hemoglobin Concent 33 g/dL (31-37) Red Cell Distribution Width 13.6 % (11.5-14.5) Platelet Count 252 x10^3/uL (140-400) Neutrophils (%) (Auto) 81 % (31-73) Lymphocytes (%) (Auto) 11 % (24-48) Monocytes (%) (Auto) 8 % (0-9) Eosinophils (%) (Auto) 1 % (0-3) Basophils (%) (Auto) 0 % (0-3) Neutrophils # (Auto) 12.4 x10^3uL (1.8-7.7) Lymphocytes # (Auto) 1.6 x10^3/uL (1.0-4.8) Monocytes # (Auto) 1.2 x10^3/uL (0.0-1.1) Eosinophils # (Auto) 0.1 x10^3/uL (0.0-0.7) Basophils # (Auto) 0.0 x10^3/uL (0.0-0.2) Sodium Level 138 mmol/L (136-145) Potassium Level 3.7 mmol/L (3.5-5.1) Chloride Level 104 mmol/L (98-107) Carbon Dioxide Level 27 mmol/L (21-32) Anion Gap 7 (6-14) Blood Urea Nitrogen 11 mg/dL (8-26) Creatinine 0.8 mg/dL (0.7-1.3) Estimated GFR (Cockcroft-Gault) 96.7 Glucose Level 103 mg/dL (70-99) Calcium Level 8.5 mg/dL (8.5-10.1) Review of Systems Review of Systems n on.v.d str. better + cough Comment Review of Relevant I have reviewed the following items luis (where applicable) has been applied. Labs Laboratory Tests Test 02/13/17 17:45 02/14/17 05:15 02/14/17 06:16 02/14/17 06:45 Lactic Acid Level 2.3 mmol/L (0.4-2.0) White Blood Count 30.8 x10^3/uL (4.0-11.0) Red Blood Count 4.23 x10^6/uL (4.30-5.70) Hemoglobin 12.6 g/dL (13.0-17.5) Hematocrit 39.3 % (39.0-53.0) Mean Corpuscular Volume 93 fL (79-100) Mean Corpuscular Hemoglobin 30 pg (25-35) Mean Corpuscular Hemoglobin Concent 32 g/dL (31-37) Red Cell Distribution Width 14.1 % (11.5-14.5) Platelet Count 213 x10^3/uL (140-400) Neutrophils (%) (Auto) 93 % (31-73) Lymphocytes (%) (Auto) 4 % (24-48) Monocytes (%) (Auto) 3 % (0-9) Eosinophils (%) (Auto) 0 % (0-3) Basophils (%) (Auto) 0 % (0-3) Neutrophils # (Auto) 28.7 x10^3uL (1.8-7.7) Lymphocytes # (Auto) 1.1 x10^3/uL (1.0-4.8) Monocytes # (Auto) 0.9 x10^3/uL (0.0-1.1) Eosinophils # (Auto) 0.0 x10^3/uL (0.0-0.7) Basophils # (Auto) 0.1 x10^3/uL (0.0-0.2) Sodium Level 137 mmol/L (136-145) 139 mmol/L (136-145) Potassium Level 4.0 mmol/L (3.5-5.1) 4.1 mmol/L (3.5-5.1) Chloride Level 99 mmol/L (98-107) 104 mmol/L (98-107) Carbon Dioxide Level 21 mmol/L (21-32) 23 mmol/L (21-32) Anion Gap 17 (6-14) 12 (6-14) Blood Urea Nitrogen 33 mg/dL (8-26) 26 mg/dL (8-26) Creatinine 1.4 mg/dL (0.7-1.3) 0.9 mg/dL (0.7-1.3) Estimated GFR (Cockcroft-Gault) 50.7 84.4 Glucose Level 14 mg/dL (70-99) 98 mg/dL (70-99) Calcium Level 7.9 mg/dL (8.5-10.1) 8.3 mg/dL (8.5-10.1) Glucose (Fingerstick) 90 mg/dL (70-99) Test 02/15/17 07:15 White Blood Count 15.4 x10^3/uL (4.0-11.0) Red Blood Count 4.22 x10^6/uL (4.30-5.70) Hemoglobin 12.5 g/dL (13.0-17.5) Hematocrit 37.8 % (39.0-53.0) Mean Corpuscular Volume 90 fL (79-100) Mean Corpuscular Hemoglobin 30 pg (25-35) Mean Corpuscular Hemoglobin Concent 33 g/dL (31-37) Red Cell Distribution Width 13.6 % (11.5-14.5) Platelet Count 252 x10^3/uL (140-400) Neutrophils (%) (Auto) 81 % (31-73) Lymphocytes (%) (Auto) 11 % (24-48) Monocytes (%) (Auto) 8 % (0-9) Eosinophils (%) (Auto) 1 % (0-3) Basophils (%) (Auto) 0 % (0-3) Neutrophils # (Auto) 12.4 x10^3uL (1.8-7.7) Lymphocytes # (Auto) 1.6 x10^3/uL (1.0-4.8) Monocytes # (Auto) 1.2 x10^3/uL (0.0-1.1) Eosinophils # (Auto) 0.1 x10^3/uL (0.0-0.7) Basophils # (Auto) 0.0 x10^3/uL (0.0-0.2) Sodium Level 138 mmol/L (136-145) Potassium Level 3.7 mmol/L (3.5-5.1) Chloride Level 104 mmol/L (98-107) Carbon Dioxide Level 27 mmol/L (21-32) Anion Gap 7 (6-14) Blood Urea Nitrogen 11 mg/dL (8-26) Creatinine 0.8 mg/dL (0.7-1.3) Estimated GFR (Cockcroft-Gault) 96.7 Glucose Level 103 mg/dL (70-99) Calcium Level 8.5 mg/dL (8.5-10.1) Laboratory Tests Test 02/15/17 07:15 White Blood Count 15.4 x10^3/uL (4.0-11.0) Red Blood Count 4.22 x10^6/uL (4.30-5.70) Hemoglobin 12.5 g/dL (13.0-17.5) Hematocrit 37.8 % (39.0-53.0) Mean Corpuscular Volume 90 fL (79-100) Mean Corpuscular Hemoglobin 30 pg (25-35) Mean Corpuscular Hemoglobin Concent 33 g/dL (31-37) Red Cell Distribution Width 13.6 % (11.5-14.5) Platelet Count 252 x10^3/uL (140-400) Neutrophils (%) (Auto) 81 % (31-73) Lymphocytes (%) (Auto) 11 % (24-48) Monocytes (%) (Auto) 8 % (0-9) Eosinophils (%) (Auto) 1 % (0-3) Basophils (%) (Auto) 0 % (0-3) Neutrophils # (Auto) 12.4 x10^3uL (1.8-7.7) Lymphocytes # (Auto) 1.6 x10^3/uL (1.0-4.8) Monocytes # (Auto) 1.2 x10^3/uL (0.0-1.1) Eosinophils # (Auto) 0.1 x10^3/uL (0.0-0.7) Basophils # (Auto) 0.0 x10^3/uL (0.0-0.2) Sodium Level 138 mmol/L (136-145) Potassium Level 3.7 mmol/L (3.5-5.1) Chloride Level 104 mmol/L (98-107) Carbon Dioxide Level 27 mmol/L (21-32) Anion Gap 7 (6-14) Blood Urea Nitrogen 11 mg/dL (8-26) Creatinine 0.8 mg/dL (0.7-1.3) Estimated GFR (Cockcroft-Gault) 96.7 Glucose Level 103 mg/dL (70-99) Calcium Level 8.5 mg/dL (8.5-10.1) Microbiology 02/13/17 Blood Culture - Preliminary, Resulted 02/13/17 Blood Culture Result 1 (JOCELINE) - Preliminary, Resulted Medications Current Medications Albuterol Sulfate (Ventolin Neb Soln) 2.5 mg 1X ONCE NEB Last administered on 02/13/17t 12:17; Start 02/13/17 at 12:15; Stop 02/13/17 at 12:16; Status DC Albuterol Sulfate (Ventolin Neb Soln) 2.5 mg STK-MED ONCE .ROUTE ; Start at 12:16; Stop 02/13/17 at 12:17; Status DC Ceftriaxone Sodium 50 ml @ 100 mls/hr 1X ONCE IV Last administered on t 15:02; Start 02/13/17 at 13:00; Stop 02/13/17 at 13:29; Status DC Azithromycin 250 ml @ 250 mls/hr 1X ONCE IV Last administered on 02/13/17 13:56; Start 02/13/17 at 13:00; Stop 02/13/17 at 13:59; Status DC Sodium Chloride 1,000 ml @ 1,000 mls/hr Q1H IV Last administered on 16:12; Start 02/13/17 at 15:12; Stop 02/13/17 at 17:11; Status DC Ibuprofen (Motrin) 400 mg PRN Q6HRS PRN PO INFLAMMATION Last administered on 20:51; Start 02/13/17 at 15:45 Info (Do NOT chart on this placeholder) 1 each PRN 1X PRN MC SEE COMMENTS; Start 02/13/17 at 17:45; Status UNV Pneumococcal Polyvalent Vaccine (Do NOT chart on this placeholder) 1 each PRN 1X PRN MC SEE COMMENTS; Start 02/13/17 at 17:45; Status UNV Influenza Virus Vaccine Quadrival (Fluarix Quad 3682-1220 Syringe) 0.5 ml ONCE ONCE VAX IM ; Start 02/13/17 at 18:00; Stop 02/13/17 at 18:01; Status DC Azithromycin 500 mg/Sodium Chloride 250 ml @ 250 mls/hr Q24H IV ; Start at 16:00; Stop 02/14/17 at 16:00; Status DC Levofloxacin/ Dextrose 100 ml @ 100 mls/hr Q24H IV Last administered on 14:49; Start 02/14/17 at 16:00 Albuterol/ Ipratropium (Duoneb) 3 ml RTQID NEB Last administered on 02/15/17 12:01; Start 02/13/17 at 20:00 Vancomycin HCl 1.75 gm/Dextrose/ Sodium Chloride 500 ml @ 500 mls/hr 1X ONCE IV Last administered on 02/14/17 09:19; Start 02/14/17 at 09:00; Stop 02/14 at 09:59; Status DC Vancomycin HCl (Vanco Per Pharmacy) 1 each PRN DAILY PRN MC SEE COMMENTS Last administered on 02/14/17 11:17; Start 02/14/17 at 08:45; Stop 02/15/17 at 09 :11; Status DC Nicotine (Nicoderm Cq 21mg) 1 patch DAILY TD Last administered on 02/15/17 08 :55; Start 02/14/17 at 11:15 Vancomycin HCl 1 gm/Sodium Chloride 250 ml @ 250 mls/hr Q12H IV Last administered on 02/15/17 08:56; Start 02/14/17 at 21:00; Stop 02/15/17 at 09 :11; Status DC Vancomycin HCl 1 each 1X ONCE MC ; Start 02/15/17 at 20:30; Stop 02/15/17 at 20:31; Status Cancel Lactobacillus Rhamnosus (Culturelle) 1 cap BID PO Last administered on 08:54; Start 02/14/17 at 21:00 Iohexol (Omnipaque 300 Mg/ml) 75 ml 1X ONCE IV Last administered on 14:37; Start 02/14/17 at 14:30; Stop 02/14/17 at 14:31; Status DC Info (Do NOT chart on this entry -- for MONITORING) 1 each PRN DAILY PRN MC SEE COMMENTS; Start 02/14/17 at 14:30; Stop 02/16/17 at 14:29 Active Scripts Active Cipro (Ciprofloxacin Hcl) 500 Mg Tablet 1 Tab PO BID Combivent Respimat Inhal (Ipratropium/Albuterol Sulfate) 4 Gm Aer.w.adap 1 Inh IH QID Vitals/I & O Vital Sign - Last 24 Hours 02/14/17 02/14/17 02/14/17 02/14/17 16:13 16:46 19:46 20:00 Temp 97.9 97.5 97.9 97.5 Pulse 86 81 Resp 20 20 B/P (MAP) 98/64 (75) 114/74 (87) Pulse Ox 95 94 O2 Delivery Nasal Cannula Nasal Cannula Nasal Cannula Nasal Cannula O2 Flow Rate 4.0 3.5 4.0 4.0 02/14/17 02/14/17 02/15/17 02/15/17 20:22 23:57 03:51 07:00 Temp 98.4 97.8 97.3 98.4 97.8 97.3 Pulse 86 80 83 Resp 18 20 18 B/P (MAP) 125/85 (98) 112/65 (81) 132/73 (92) Pulse Ox 94 94 96 95 O2 Delivery Nasal Cannula Nasal Cannula Nasal Cannula Nasal Cannula O2 Flow Rate 3.5 4.0 4.0 4.0 02/15/17 02/15/17 02/15/17 02/15/17 08:00 08:10 11:00 12:10 Temp 97.4 97.4 Pulse 75 Resp 16 B/P (MAP) 135/75 (95) Pulse Ox 98 92 96 O2 Delivery Nasal Cannula Nasal Cannula Nasal Cannula Nasal Cannula O2 Flow Rate 4.0 3.5 4.0 3.5 Intake and Output 02/14/17 02/14/17 02/15/17 15:00 23:00 07:00 Intake Total 650 ml 0 ml Balance 650 ml 0 ml MAR SHARIF MD Feb 15, 2017 13:26
[2017-02-15] MEDS: IBUPROFEN 400 MG TABLET. PO PRN ×2 (13:31→21:40)
[2017-02-15] MEDS ORDERED: NICOTINE 21MG PATCH. TD ONE (13:45)
[2017-02-15 15:00] VITALS: BP 119/80
--- NOTE | 2017-02-15 18:56 | PDOC ---
Infectious Disease Note Subjective Subjective Feeling better, less cough and less right-sided chest discomfort Failed 6 minute walk, remains on O2 supplementation Denies SOA No fever ROS ROS GEN: Denies chills, sweats GI: Denies n/v/d NEURO: Denies confusion, dizziness Vital Sign Vital Signs Vital Signs Date Time Temp Pulse Resp B/P (MAP) Pulse Ox O2 Delivery O2 Flow Rate FiO2 02/15/17 16:06 95 Nasal Cannula 3.5 02/15/17 15:00 97.9 92 16 119/80 (93) 97.9 Physical Exam PHYSICAL EXAM GENERAL: Propped up in bed, smiling, NAD HEENT: OC/OP pink NECK: Supple LUNGS: Clear HEART: S1S2, no gallop, no murmur ABD: Soft, NT EXT: No edema, no cyanosis 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, 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, no focal neurologic deficit SKIN: No rash Labs Lab Laboratory Tests Test 02/15/17 07:15 White Blood Count 15.4 x10^3/uL (4.0-11.0) Red Blood Count 4.22 x10^6/uL (4.30-5.70) Hemoglobin 12.5 g/dL (13.0-17.5) Hematocrit 37.8 % (39.0-53.0) Mean Corpuscular Volume 90 fL (79-100) Mean Corpuscular Hemoglobin 30 pg (25-35) Mean Corpuscular Hemoglobin Concent 33 g/dL (31-37) Red Cell Distribution Width 13.6 % (11.5-14.5) Platelet Count 252 x10^3/uL (140-400) Neutrophils (%) (Auto) 81 % (31-73) Lymphocytes (%) (Auto) 11 % (24-48) Monocytes (%) (Auto) 8 % (0-9) Eosinophils (%) (Auto) 1 % (0-3) Basophils (%) (Auto) 0 % (0-3) Neutrophils # (Auto) 12.4 x10^3uL (1.8-7.7) Lymphocytes # (Auto) 1.6 x10^3/uL (1.0-4.8) Monocytes # (Auto) 1.2 x10^3/uL (0.0-1.1) Eosinophils # (Auto) 0.1 x10^3/uL (0.0-0.7) Basophils # (Auto) 0.0 x10^3/uL (0.0-0.2) Sodium Level 138 mmol/L (136-145) Potassium Level 3.7 mmol/L (3.5-5.1) Chloride Level 104 mmol/L (98-107) Carbon Dioxide Level 27 mmol/L (21-32) Anion Gap 7 (6-14) Blood Urea Nitrogen 11 mg/dL (8-26) Creatinine 0.8 mg/dL (0.7-1.3) Estimated GFR (Cockcroft-Gault) 96.7 Glucose Level 103 mg/dL (70-99) Calcium Level 8.5 mg/dL (8.5-10.1) Micro BLD CULT RESULT 1 Preliminary Comment Streptococcus pneumoniae Objective Assessment Community-acquired pneumonia. Fever - resolved Leukocytosis, trending down Hypoxemia. Tobaccoism. Dehydration with elevated BUN and creatinine, improving. 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
[2017-02-15 19:00] VITALS: BP 126/75
[2017-02-15 23:51] VITALS: BP 130/80
[2017-02-16 03:42] VITALS: BP 125/87
[2017-02-16 05:49] LABS: BASO # 0.1 x10^3/uL (0.0-0.2); BASO % 1 % (0-3); EOS % 0 % (0-3); HEMOGLOBIN 12.6 g/dL (13.0-17.5); LYMPH # 1.8 x10^3/uL (1.0-4.8); LYMPH % 15 % (24-48); MEAN CORPUSCULAR HEMOGLOBIN 31 pg (25-35); MEAN CORPUSCULAR HGB CONC 34 g/dL (31-37); MEAN CORPUSCULAR VOLUME 89 fL (79-100); MONO % 9 % (0-9); NEUT % 75 % (31-73); PLATELET COUNT 279 x10^3/uL (140-400); RED BLOOD COUNT 4.14 x10^6/uL (4.30-5.70); RED CELL DISTRIBUTION WIDTH 13.9 % (11.5-14.5)
[2017-02-16 06:10] LABS: CALCIUM 8.7 mg/dL (8.5-10.1); CREATININE 0.9 mg/dL (0.7-1.3); GFR 84.4; POTASSIUM 3.9 mmol/L (3.5-5.1)
[2017-02-16 07:00] VITALS: BP 132/78
[2017-02-16] MEDS: IPRATRPIUM/ALBUTEROL 0.5/2.5MG 3 ML NEBU. NEB SCH ×4 (07:47→20:12)
--- NOTE | 2017-02-16 08:51 | PDOC ---
PULMONARY PROGRESS NOTES Subjective feels better Vitals Vital Signs Date Time Temp Pulse Resp B/P (MAP) Pulse Ox O2 Delivery O2 Flow Rate FiO2 02/16/17 07:49 93 Nasal Cannula 3.5 02/16/17 07:00 98.0 95 18 132/78 (96) 98.0 ROS: No Nausea, No Chest Pain, No Abdominal Pain, No Increase Cough General: Alert, No acute distress Lungs: Other (decrease right) Cardiovascular: S1 Abdomen: Soft Neuro Exam: Alert Extremities: No Edema Skin: Warm Labs Laboratory Tests Test 02/15/17 07:15 02/16/17 03:30 White Blood Count 15.4 x10^3/uL (4.0-11.0) 12.0 x10^3/uL (4.0-11.0) Red Blood Count 4.22 x10^6/uL (4.30-5.70) 4.14 x10^6/uL (4.30-5.70) Hemoglobin 12.5 g/dL (13.0-17.5) 12.6 g/dL (13.0-17.5) Hematocrit 37.8 % (39.0-53.0) 37.0 % (39.0-53.0) Mean Corpuscular Volume 90 fL (79-100) 89 fL (79-100) Mean Corpuscular Hemoglobin 30 pg (25-35) 31 pg (25-35) Mean Corpuscular Hemoglobin Concent 33 g/dL (31-37) 34 g/dL (31-37) Red Cell Distribution Width 13.6 % (11.5-14.5) 13.9 % (11.5-14.5) Platelet Count 252 x10^3/uL (140-400) 279 x10^3/uL (140-400) Neutrophils (%) (Auto) 81 % (31-73) 75 % (31-73) Lymphocytes (%) (Auto) 11 % (24-48) 15 % (24-48) Monocytes (%) (Auto) 8 % (0-9) 9 % (0-9) Eosinophils (%) (Auto) 1 % (0-3) 0 % (0-3) Basophils (%) (Auto) 0 % (0-3) 1 % (0-3) Neutrophils # (Auto) 12.4 x10^3uL (1.8-7.7) 9.0 x10^3uL (1.8-7.7) Lymphocytes # (Auto) 1.6 x10^3/uL (1.0-4.8) 1.8 x10^3/uL (1.0-4.8) Monocytes # (Auto) 1.2 x10^3/uL (0.0-1.1) 1.1 x10^3/uL (0.0-1.1) Eosinophils # (Auto) 0.1 x10^3/uL (0.0-0.7) 0.0 x10^3/uL (0.0-0.7) Basophils # (Auto) 0.0 x10^3/uL (0.0-0.2) 0.1 x10^3/uL (0.0-0.2) Sodium Level 138 mmol/L (136-145) 139 mmol/L (136-145) Potassium Level 3.7 mmol/L (3.5-5.1) 3.9 mmol/L (3.5-5.1) Chloride Level 104 mmol/L (98-107) 101 mmol/L (98-107) Carbon Dioxide Level 27 mmol/L (21-32) 28 mmol/L (21-32) Anion Gap 7 (6-14) 10 (6-14) Blood Urea Nitrogen 11 mg/dL (8-26) 12 mg/dL (8-26) Creatinine 0.8 mg/dL (0.7-1.3) 0.9 mg/dL (0.7-1.3) Estimated GFR (Cockcroft-Gault) 96.7 84.4 Glucose Level 103 mg/dL (70-99) 107 mg/dL (70-99) Calcium Level 8.5 mg/dL (8.5-10.1) 8.7 mg/dL (8.5-10.1) Laboratory Tests Test 02/16/17 03:30 White Blood Count 12.0 x10^3/uL (4.0-11.0) Red Blood Count 4.14 x10^6/uL (4.30-5.70) Hemoglobin 12.6 g/dL (13.0-17.5) Hematocrit 37.0 % (39.0-53.0) Mean Corpuscular Volume 89 fL (79-100) Mean Corpuscular Hemoglobin 31 pg (25-35) Mean Corpuscular Hemoglobin Concent 34 g/dL (31-37) Red Cell Distribution Width 13.9 % (11.5-14.5) Platelet Count 279 x10^3/uL (140-400) Neutrophils (%) (Auto) 75 % (31-73) Lymphocytes (%) (Auto) 15 % (24-48) Monocytes (%) (Auto) 9 % (0-9) Eosinophils (%) (Auto) 0 % (0-3) Basophils (%) (Auto) 1 % (0-3) Neutrophils # (Auto) 9.0 x10^3uL (1.8-7.7) Lymphocytes # (Auto) 1.8 x10^3/uL (1.0-4.8) Monocytes # (Auto) 1.1 x10^3/uL (0.0-1.1) Eosinophils # (Auto) 0.0 x10^3/uL (0.0-0.7) Basophils # (Auto) 0.1 x10^3/uL (0.0-0.2) Sodium Level 139 mmol/L (136-145) Potassium Level 3.9 mmol/L (3.5-5.1) Chloride Level 101 mmol/L (98-107) Carbon Dioxide Level 28 mmol/L (21-32) Anion Gap 10 (6-14) Blood Urea Nitrogen 12 mg/dL (8-26) Creatinine 0.9 mg/dL (0.7-1.3) Estimated GFR (Cockcroft-Gault) 84.4 Glucose Level 107 mg/dL (70-99) Calcium Level 8.7 mg/dL (8.5-10.1) Medications Active Scripts Medications Dose Route/Sig Max Daily Dose Days Date Category Cipro (Ciprofloxacin Hcl) 500 Mg Tablet 1 Tab PO BID 02/15/17 Rx Combivent Respimat Inhal (Ipratropium/Albuterol Sulfate) 4 Gm Aer.w.adap 1 Inh IH QID 02/15/[address] CHEST 1. Extensive right lung infiltrate with dominant involvement of the right upper lobe, compatible with pneumonia. No centrally obstructing mass is seen. Further imaging follow-up is suggested to exclude an occult neoplasm. 2. Small right pleural effusion with moderate right basilar atelectasis. 3. Emphysema. 4. Borderline enlarged mediastinal lymph nodes are probably reactive. Impression . 1. Community-acquired extensive right upper lobe pneumonia. 2. Acute hypoxic respiratory failure secondary to community-acquired pneumonia. 3. Abnormal chest x-ray with right upper lobe consolidation, right hilar fullness. Less likely postobstructive process, CT chest reviewed, no central mass 4. Suspected underlying chronic obstructive pulmonary disease. 5. Bacteremia, strep.pneumo Plan . 1. Continue with antibiotics per ID 2. follow Infectious Disease recommendations 3. f/u cxr in am 4. We will follow the response to antibiotics 5. Bronchodilators. 6. Outpatient full pulmonary function test. 7. Smoking cessation counseling provided. 8. Discussed with the patient's and will follow along with you. FLORINA VILLALTA MD Feb 16, 2017 08:51
[2017-02-16] MEDS: NICOTINE 21MG PATCH. TD SCH (10:43)
[2017-02-16] MEDS: LACTOBACILLUS RHAMNOSUS GG 1 CAPSULE. PO SCH ×2 (10:43→21:13)
[2017-02-16] MEDS: IBUPROFEN 400 MG TABLET. PO PRN ×2 (10:46→21:13)
[2017-02-16 11:00] VITALS: BP 172/82
[2017-02-16 15:00] VITALS: BP 135/84
--- NOTE | 2017-02-16 15:44 | PDOC ---
PROGRESS NOTES Chief Complaint Chief Complaint Acute hypoxic respir failure, sepsis on admit 1. [place] PNA: on levaquin; nebs, suppl O2, change to PO 2. Bacteremia: GPC in 1/4 bottles. strep pneumo, prob from PNA 3. Chest pain: pleuritis, responding well to NSAIDs. [place] available 4. Leukocytosis: exuberant response. monitor 5. tobaccoism: nicotine patch. cessation again strongly encouraged 6. prevention: lovenox, PPI History of Present Illness History of Present Illness feels better still need 02 plan repeat 6 min walk in AM, try to DC home without 02, ID following bacteremia discussed briefly with Dr. Mahajan this AM Vitals Vitals Vital Signs Date Time Temp Pulse Resp B/P (MAP) Pulse Ox O2 Delivery O2 Flow Rate FiO2 02/16/17 11:48 Nasal Cannula 3.5 02/16/17 11:00 97.8 92 18 172/82 (112) 96 97.8 Physical Exam General: Alert, Oriented X3, Cooperative, No acute distress Heart: Regular rate Lungs: Other (decrease right) Abdomen: Normal bowel sounds, Soft, No tenderness Extremities: No clubbing, No edema Skin: No rashes Labs LABS Laboratory Tests Test 02/16/17 03:30 White Blood Count 12.0 x10^3/uL (4.0-11.0) Red Blood Count 4.14 x10^6/uL (4.30-5.70) Hemoglobin 12.6 g/dL (13.0-17.5) Hematocrit 37.0 % (39.0-53.0) Mean Corpuscular Volume 89 fL (79-100) Mean Corpuscular Hemoglobin 31 pg (25-35) Mean Corpuscular Hemoglobin Concent 34 g/dL (31-37) Red Cell Distribution Width 13.9 % (11.5-14.5) Platelet Count 279 x10^3/uL (140-400) Neutrophils (%) (Auto) 75 % (31-73) Lymphocytes (%) (Auto) 15 % (24-48) Monocytes (%) (Auto) 9 % (0-9) Eosinophils (%) (Auto) 0 % (0-3) Basophils (%) (Auto) 1 % (0-3) Neutrophils # (Auto) 9.0 x10^3uL (1.8-7.7) Lymphocytes # (Auto) 1.8 x10^3/uL (1.0-4.8) Monocytes # (Auto) 1.1 x10^3/uL (0.0-1.1) Eosinophils # (Auto) 0.0 x10^3/uL (0.0-0.7) Basophils # (Auto) 0.1 x10^3/uL (0.0-0.2) Sodium Level 139 mmol/L (136-145) Potassium Level 3.9 mmol/L (3.5-5.1) Chloride Level 101 mmol/L (98-107) Carbon Dioxide Level 28 mmol/L (21-32) Anion Gap 10 (6-14) Blood Urea Nitrogen 12 mg/dL (8-26) Creatinine 0.9 mg/dL (0.7-1.3) Estimated GFR (Cockcroft-Gault) 84.4 Glucose Level 107 mg/dL (70-99) Calcium Level 8.7 mg/dL (8.5-10.1) Review of Systems Review of Systems no n.v.d cough Comment Review of Relevant I have reviewed the following items luis (where applicable) has been applied. Labs Laboratory Tests Test 02/15/17 07:15 02/16/17 03:30 White Blood Count 15.4 x10^3/uL (4.0-11.0) 12.0 x10^3/uL (4.0-11.0) Red Blood Count 4.22 x10^6/uL (4.30-5.70) 4.14 x10^6/uL (4.30-5.70) Hemoglobin 12.5 g/dL (13.0-17.5) 12.6 g/dL (13.0-17.5) Hematocrit 37.8 % (39.0-53.0) 37.0 % (39.0-53.0) Mean Corpuscular Volume 90 fL (79-100) 89 fL (79-100) Mean Corpuscular Hemoglobin 30 pg (25-35) 31 pg (25-35) Mean Corpuscular Hemoglobin Concent 33 g/dL (31-37) 34 g/dL (31-37) Red Cell Distribution Width 13.6 % (11.5-14.5) 13.9 % (11.5-14.5) Platelet Count 252 x10^3/uL (140-400) 279 x10^3/uL (140-400) Neutrophils (%) (Auto) 81 % (31-73) 75 % (31-73) Lymphocytes (%) (Auto) 11 % (24-48) 15 % (24-48) Monocytes (%) (Auto) 8 % (0-9) 9 % (0-9) Eosinophils (%) (Auto) 1 % (0-3) 0 % (0-3) Basophils (%) (Auto) 0 % (0-3) 1 % (0-3) Neutrophils # (Auto) 12.4 x10^3uL (1.8-7.7) 9.0 x10^3uL (1.8-7.7) Lymphocytes # (Auto) 1.6 x10^3/uL (1.0-4.8) 1.8 x10^3/uL (1.0-4.8) Monocytes # (Auto) 1.2 x10^3/uL (0.0-1.1) 1.1 x10^3/uL (0.0-1.1) Eosinophils # (Auto) 0.1 x10^3/uL (0.0-0.7) 0.0 x10^3/uL (0.0-0.7) Basophils # (Auto) 0.0 x10^3/uL (0.0-0.2) 0.1 x10^3/uL (0.0-0.2) Sodium Level 138 mmol/L (136-145) 139 mmol/L (136-145) Potassium Level 3.7 mmol/L (3.5-5.1) 3.9 mmol/L (3.5-5.1) Chloride Level 104 mmol/L (98-107) 101 mmol/L (98-107) Carbon Dioxide Level 27 mmol/L (21-32) 28 mmol/L (21-32) Anion Gap 7 (6-14) 10 (6-14) Blood Urea Nitrogen 11 mg/dL (8-26) 12 mg/dL (8-26) Creatinine 0.8 mg/dL (0.7-1.3) 0.9 mg/dL (0.7-1.3) Estimated GFR (Cockcroft-Gault) 96.7 84.4 Glucose Level 103 mg/dL (70-99) 107 mg/dL (70-99) Calcium Level 8.5 mg/dL (8.5-10.1) 8.7 mg/dL (8.5-10.1) Laboratory Tests Test 02/16/17 03:30 White Blood Count 12.0 x10^3/uL (4.0-11.0) Red Blood Count 4.14 x10^6/uL (4.30-5.70) Hemoglobin 12.6 g/dL (13.0-17.5) Hematocrit 37.0 % (39.0-53.0) Mean Corpuscular Volume 89 fL (79-100) Mean Corpuscular Hemoglobin 31 pg (25-35) Mean Corpuscular Hemoglobin Concent 34 g/dL (31-37) Red Cell Distribution Width 13.9 % (11.5-14.5) Platelet Count 279 x10^3/uL (140-400) Neutrophils (%) (Auto) 75 % (31-73) Lymphocytes (%) (Auto) 15 % (24-48) Monocytes (%) (Auto) 9 % (0-9) Eosinophils (%) (Auto) 0 % (0-3) Basophils (%) (Auto) 1 % (0-3) Neutrophils # (Auto) 9.0 x10^3uL (1.8-7.7) Lymphocytes # (Auto) 1.8 x10^3/uL (1.0-4.8) Monocytes # (Auto) 1.1 x10^3/uL (0.0-1.1) Eosinophils # (Auto) 0.0 x10^3/uL (0.0-0.7) Basophils # (Auto) 0.1 x10^3/uL (0.0-0.2) Sodium Level 139 mmol/L (136-145) Potassium Level 3.9 mmol/L (3.5-5.1) Chloride Level 101 mmol/L (98-107) Carbon Dioxide Level 28 mmol/L (21-32) Anion Gap 10 (6-14) Blood Urea Nitrogen 12 mg/dL (8-26) Creatinine 0.9 mg/dL (0.7-1.3) Estimated GFR (Cockcroft-Gault) 84.4 Glucose Level 107 mg/dL (70-99) Calcium Level 8.7 mg/dL (8.5-10.1) Microbiology 02/13/17 Blood Culture - Preliminary, Resulted 02/13/17 Blood Culture Result 1 (JOCELINE) - Preliminary, Resulted 02/13/17 Antimicrobic Susceptibility - Preliminary, Resulted Medications Current Medications Albuterol Sulfate (Ventolin Neb Soln) 2.5 mg 1X ONCE NEB Last administered on 02/13/17 12:17; Start 02/13/17 at 12:15; Stop 02/13/17 at 12:16; Status DC Albuterol Sulfate (Ventolin Neb Soln) 2.5 mg STK-MED ONCE .ROUTE ; Start at 12:16; Stop 02/13/17 at 12:17; Status DC Ceftriaxone Sodium 50 ml @ 100 mls/hr 1X ONCE IV Last administered on 15:02; Start 02/13/17 at 13:00; Stop 02/13/17 at 13:29; Status DC Azithromycin 250 ml @ 250 mls/hr 1X ONCE IV Last administered on 02/13/17 13:56; Start 02/13/17 at 13:00; Stop 02/13/17 at 13:59; Status DC Sodium Chloride 1,000 ml @ 1,000 mls/hr Q1H IV Last administered on 16:12; Start 02/13/17 at 15:12; Stop 02/13/17 at 17:11; Status DC Ibuprofen (Motrin) 400 mg PRN Q6HRS PRN PO INFLAMMATION Last administered on t 10:46; Start 02/13/17 at 15:45 Info (Do NOT chart on this placeholder) 1 each PRN 1X PRN MC SEE COMMENTS; Start 02/13/17 at 17:45; Status UNV Pneumococcal Polyvalent Vaccine (Do NOT chart on this placeholder) 1 each PRN 1X PRN MC SEE COMMENTS; Start 02/13/17 at 17:45; Status UNV Influenza Virus Vaccine Quadrival (Fluarix Quad [id number] Syringe) 0.5 ml ONCE ONCE VAX IM ; Start 02/13/17 at 18:00; Stop 02/13/17 at 18:01; Status DC Azithromycin 500 mg/Sodium Chloride 250 ml @ 250 mls/hr Q24H IV ; Start at 16:00; Stop 02/14/17 at 16:00; Status DC Levofloxacin/ Dextrose 100 ml @ 100 mls/hr Q24H IV Last administered on 14:49; Start 02/14/17 at 16:00; Stop 02/15/17 at 13:27; Status DC Albuterol/ Ipratropium (Duoneb) 3 ml RTQID NEB Last administered on 02/15/17 12:01; Start 02/13/17 at 20:00; Stop 02/15/17 at 13:27; Status DC Vancomycin HCl 1.75 gm/Dextrose/ Sodium Chloride 500 ml @ 500 mls/hr 1X ONCE IV Last administered on 02/14/17 09:19; Start 02/14/17 at 09:00; Stop 02/14 at 09:59; Status DC Vancomycin HCl (Vanco Per Pharmacy) 1 each PRN DAILY PRN MC SEE COMMENTS Last administered on 02/14/17 11:17; Start 02/14/17 at 08:45; Stop 02/15/17 at 09 :11; Status DC Nicotine (Nicoderm Cq 21mg) 1 patch DAILY TD Last administered on 02/16/17 10 :43; Start 02/14/17 at 11:15 Vancomycin HCl 1 gm/Sodium Chloride 250 ml @ 250 mls/hr Q12H IV Last administered on 02/15/17 08:56; Start 02/14/17 at 21:00; Stop 02/15/17 at 09 :11; Status DC Vancomycin HCl 1 each 1X ONCE MC ; Start 02/15/17 at 20:30; Stop 02/15/17 at 20:31; Status Cancel Lactobacillus Rhamnosus (Culturelle) 1 cap BID PO Last administered on 10:43; Start 02/14/17 at 21:00 Iohexol (Omnipaque 300 Mg/ml) 75 ml 1X ONCE IV Last administered on 14:37; Start 02/14/17 at 14:30; Stop 02/14/17 at 14:31; Status DC Info (Do NOT chart on this entry -- for MONITORING) 1 each PRN DAILY PRN MC SEE COMMENTS; Start 02/14/17 at 14:30; Stop 02/16/17 at 14:29; Status DC Albuterol/ Ipratropium (Duoneb) 3 ml Q4HRS W/A NEB Last administered on t 11:46; Start 02/15/17 at 14:00 Levofloxacin (Levaquin) 750 mg DAILY06 PO ; Start 02/16/17 at 15:00 Nicotine (Nicoderm Cq 21mg) 1 patch 1X ONCE TD Last administered on t 13:44; Start 02/15/17 at 13:45; Stop 02/15/17 at 13:46; Status DC Active Scripts Active Cipro (Ciprofloxacin Hcl) 500 Mg Tablet 1 Tab PO BID Combivent Respimat Inhal (Ipratropium/Albuterol Sulfate) 4 Gm Aer.w.adap 1 Inh IH QID Vitals/I & O Vital Sign - Last 24 Hours 02/15/17 02/15/17 02/15/17 02/15/17 16:06 19:00 19:47 20:00 Temp 97.5 97.5 Pulse 88 Resp 18 B/P (MAP) 126/75 (92) Pulse Ox 95 96 96 O2 Delivery Nasal Cannula Nasal Cannula Nasal Cannula Nasal Cannula O2 Flow Rate 3.5 4.0 3.5 3.5 02/15/17 02/16/17 02/16/17 02/16/17 23:51 03:42 07:00 07:49 Temp 98.2 97.6 98.0 98.2 97.6 98.0 Pulse 89 87 95 Resp 18 18 18 B/P (MAP) 130/80 (97) 125/87 (100) 132/78 (96) Pulse Ox 94 95 89 93 O2 Delivery Nasal Cannula Nasal Cannula Room Air Nasal Cannula O2 Flow Rate 4.0 4.0 3.5 02/16/17 02/16/17 02/16/17 08:00 11:00 11:48 Temp 97.8 97.8 Pulse 92 Resp 18 B/P (MAP) 172/82 (112) Pulse Ox 96 O2 Delivery Nasal Cannula Room Air Nasal Cannula O2 Flow Rate 3.5 3.5 Intake and Output 02/15/17 02/15/17 02/16/17 15:00 23:00 07:00 Intake Total 700 ml Balance 700 ml MAR SHARIF MD Feb 16, 2017 15:44
[2017-02-16 19:30] VITALS: BP 129/75
[2017-02-16 23:30] VITALS: BP 130/80
[2017-02-17 03:30] VITALS: BP 118/67
[2017-02-17 05:06] LABS: BASO # 0.1 x10^3/uL (0.0-0.2); BASO % 1 % (0-3); EOS % 1 % (0-3); HEMATOCRIT 39.4 % (39.0-53.0); HEMOGLOBIN 13.1 g/dL (13.0-17.5); LYMPH # 1.9 x10^3/uL (1.0-4.8); LYMPH % 15 % (24-48); MEAN CORPUSCULAR HEMOGLOBIN 30 pg (25-35); MEAN CORPUSCULAR HGB CONC 33 g/dL (31-37); MEAN CORPUSCULAR VOLUME 91 fL (79-100); MONO % 16 % (0-9); NEUT % 67 % (31-73); PLATELET COUNT 365 x10^3/uL (140-400); RED BLOOD COUNT 4.35 x10^6/uL (4.30-5.70); RED CELL DISTRIBUTION WIDTH 14.1 % (11.5-14.5); WHITE BLOOD COUNT 12.7 x10^3/uL (4.0-11.0)
[2017-02-17 05:50] LABS: CALCIUM 8.9 mg/dL (8.5-10.1); CREATININE 0.8 mg/dL (0.7-1.3); GFR 96.7; POTASSIUM 3.8 mmol/L (3.5-5.1)
[2017-02-17 06:59] VITALS: BP 115/82
[2017-02-17] MEDS: IPRATRPIUM/ALBUTEROL 0.5/2.5MG 3 ML NEBU. NEB SCH ×5 (08:38→22:00)
[2017-02-17] MEDS ORDERED: NICO1PAT25 TP (08:54)
[2017-02-17] MEDS: LACTOBACILLUS RHAMNOSUS GG 1 CAPSULE. PO SCH ×2 (09:09→20:54)
[2017-02-17] MEDS: NICOTINE 21MG PATCH. TD SCH (09:10)
--- NOTE | 2017-02-17 10:10 | PDOC ---
PULMONARY PROGRESS NOTES Subjective feels better Vitals Vital Signs Date Time Temp Pulse Resp B/P (MAP) Pulse Ox O2 Delivery O2 Flow Rate FiO2 02/17/17 08:44 95 Nasal Cannula 3.5 02/17/17 06:59 97.9 77 17 115/82 (93) 97.9 ROS: No Nausea, No Chest Pain, No Abdominal Pain, No Increase Cough General: Alert, No acute distress Lungs: Other (decrease right) Cardiovascular: S1 Abdomen: Soft Neuro Exam: Alert Extremities: No Edema Skin: Warm Labs Laboratory Tests Test 02/16/17 03:30 02/17/17 04:30 White Blood Count 12.0 x10^3/uL (4.0-11.0) 12.7 x10^3/uL (4.0-11.0) Red Blood Count 4.14 x10^6/uL (4.30-5.70) 4.35 x10^6/uL (4.30-5.70) Hemoglobin 12.6 g/dL (13.0-17.5) 13.1 g/dL (13.0-17.5) Hematocrit 37.0 % (39.0-53.0) 39.4 % (39.0-53.0) Mean Corpuscular Volume 89 fL (79-100) 91 fL (79-100) Mean Corpuscular Hemoglobin 31 pg (25-35) 30 pg (25-35) Mean Corpuscular Hemoglobin Concent 34 g/dL (31-37) 33 g/dL (31-37) Red Cell Distribution Width 13.9 % (11.5-14.5) 14.1 % (11.5-14.5) Platelet Count 279 x10^3/uL (140-400) 365 x10^3/uL (140-400) Neutrophils (%) (Auto) 75 % (31-73) 67 % (31-73) Lymphocytes (%) (Auto) 15 % (24-48) 15 % (24-48) Monocytes (%) (Auto) 9 % (0-9) 16 % (0-9) Eosinophils (%) (Auto) 0 % (0-3) 1 % (0-3) Basophils (%) (Auto) 1 % (0-3) 1 % (0-3) Neutrophils # (Auto) 9.0 x10^3uL (1.8-7.7) 8.6 x10^3uL (1.8-7.7) Lymphocytes # (Auto) 1.8 x10^3/uL (1.0-4.8) 1.9 x10^3/uL (1.0-4.8) Monocytes # (Auto) 1.1 x10^3/uL (0.0-1.1) 2.0 x10^3/uL (0.0-1.1) Eosinophils # (Auto) 0.0 x10^3/uL (0.0-0.7) 0.2 x10^3/uL (0.0-0.7) Basophils # (Auto) 0.1 x10^3/uL (0.0-0.2) 0.1 x10^3/uL (0.0-0.2) Sodium Level 139 mmol/L (136-145) 141 mmol/L (136-145) Potassium Level 3.9 mmol/L (3.5-5.1) 3.8 mmol/L (3.5-5.1) Chloride Level 101 mmol/L (98-107) 104 mmol/L (98-107) Carbon Dioxide Level 28 mmol/L (21-32) 29 mmol/L (21-32) Anion Gap 10 (6-14) 8 (6-14) Blood Urea Nitrogen 12 mg/dL (8-26) 8 mg/dL (8-26) Creatinine 0.9 mg/dL (0.7-1.3) 0.8 mg/dL (0.7-1.3) Estimated GFR (Cockcroft-Gault) 84.4 96.7 Glucose Level 107 mg/dL (70-99) 113 mg/dL (70-99) Calcium Level 8.7 mg/dL (8.5-10.1) 8.9 mg/dL (8.5-10.1) Laboratory Tests Test 02/17/17 04:30 White Blood Count 12.7 x10^3/uL (4.0-11.0) Red Blood Count 4.35 x10^6/uL (4.30-5.70) Hemoglobin 13.1 g/dL (13.0-17.5) Hematocrit 39.4 % (39.0-53.0) Mean Corpuscular Volume 91 fL (79-100) Mean Corpuscular Hemoglobin 30 pg (25-35) Mean Corpuscular Hemoglobin Concent 33 g/dL (31-37) Red Cell Distribution Width 14.1 % (11.5-14.5) Platelet Count 365 x10^3/uL (140-400) Neutrophils (%) (Auto) 67 % (31-73) Lymphocytes (%) (Auto) 15 % (24-48) Monocytes (%) (Auto) 16 % (0-9) Eosinophils (%) (Auto) 1 % (0-3) Basophils (%) (Auto) 1 % (0-3) Neutrophils # (Auto) 8.6 x10^3uL (1.8-7.7) Lymphocytes # (Auto) 1.9 x10^3/uL (1.0-4.8) Monocytes # (Auto) 2.0 x10^3/uL (0.0-1.1) Eosinophils # (Auto) 0.2 x10^3/uL (0.0-0.7) Basophils # (Auto) 0.1 x10^3/uL (0.0-0.2) Sodium Level 141 mmol/L (136-145) Potassium Level 3.8 mmol/L (3.5-5.1) Chloride Level 104 mmol/L (98-107) Carbon Dioxide Level 29 mmol/L (21-32) Anion Gap 8 (6-14) Blood Urea Nitrogen 8 mg/dL (8-26) Creatinine 0.8 mg/dL (0.7-1.3) Estimated GFR (Cockcroft-Gault) 96.7 Glucose Level 113 mg/dL (70-99) Calcium Level 8.9 mg/dL (8.5-10.1) Medications Active Scripts Medications Dose Route/Sig Max Daily Dose Days Date Category Cipro (Ciprofloxacin Hcl) 500 Mg Tablet 1 Tab PO BID 02/15/17 Rx Combivent Respimat Inhal (Ipratropium/Albuterol Sulfate) 4 Gm Aer.w.adap 1 Inh IH QID 02/15/[address] CHEST 1. Extensive right lung infiltrate with dominant involvement of the right upper lobe, compatible with pneumonia. No centrally obstructing mass is seen. Further imaging follow-up is suggested to exclude an occult neoplasm. 2. Small right pleural effusion with moderate right basilar atelectasis. 3. Emphysema. 4. Borderline enlarged mediastinal lymph nodes are probably reactive. Impression . 1. Community-acquired extensive right upper lobe pneumonia. 2. Acute hypoxic respiratory failure secondary to community-acquired pneumonia. 3. Abnormal chest x-ray with right upper lobe consolidation, right hilar fullness. Less likely postobstructive process, CT chest reviewed, no central mass 4. Suspected underlying chronic obstructive pulmonary disease. 5. Bacteremia, strep.pneumo Plan . 1. Continue with antibiotics per ID 2. follow Infectious Disease recommendations 3. f/u cxr in am 4. We will follow the response to antibiotics 5. Bronchodilators. 6. Outpatient full pulmonary function test. 7. Smoking cessation counseling provided. 8. Discussed with the patient's . I will f/u in Mar with CXR before visit FLORINA VILLALTA MD Feb 17, 2017 10:10
--- NOTE | 2017-02-17 12:39 | PDOC ---
Infectious Disease Note Subjective Subjective Feeling better, less cough and less right-sided chest discomfort Failed 6 minute walk, remains on O2 supplementation Denies SOA No fever ROS ROS GEN: Denies fevers, chills, sweats HEENT: Denies blurred vision, sore throat CV: Denies chest pain RESP: Denies shortness of air, cough GI: Denies n/v/d NEURO: Denies confusion, dizziness MSK: Denies weakness, joint pain/swelling Vital Sign Vital Signs Vital Signs Date Time Temp Pulse Resp B/P (MAP) Pulse Ox O2 Delivery O2 Flow Rate FiO2 02/17/17 08:44 95 Nasal Cannula 3.5 02/17/17 06:59 97.9 77 17 115/82 (93) 97.9 Physical Exam PHYSICAL EXAM PHYSICAL EXAM GENERAL:axoxo3 male in nad HEENT: OC/OP pink NECK: Supple LUNGS: Clear HEART: S1S2, no gallop, no murmur ABD: Soft, NT EXT: No edema, no cyanosis [employer]: Alert, 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, no focal neurologic deficit SKIN: No rash Labs Lab Laboratory Tests Test 02/17/17 04:30 White Blood Count 12.7 x10^3/uL (4.0-11.0) Red Blood Count 4.35 x10^6/uL (4.30-5.70) Hemoglobin 13.1 g/dL (13.0-17.5) Hematocrit 39.4 % (39.0-53.0) Mean Corpuscular Volume 91 fL (79-100) Mean Corpuscular Hemoglobin 30 pg (25-35) Mean Corpuscular Hemoglobin Concent 33 g/dL (31-37) Red Cell Distribution Width 14.1 % (11.5-14.5) Platelet Count 365 x10^3/uL (140-400) Neutrophils (%) (Auto) 67 % (31-73) Lymphocytes (%) (Auto) 15 % (24-48) Monocytes (%) (Auto) 16 % (0-9) Eosinophils (%) (Auto) 1 % (0-3) Basophils (%) (Auto) 1 % (0-3) Neutrophils # (Auto) 8.6 x10^3uL (1.8-7.7) Lymphocytes # (Auto) 1.9 x10^3/uL (1.0-4.8) Monocytes # (Auto) 2.0 x10^3/uL (0.0-1.1) Eosinophils # (Auto) 0.2 x10^3/uL (0.0-0.7) Basophils # (Auto) 0.1 x10^3/uL (0.0-0.2) Sodium Level 141 mmol/L (136-145) Potassium Level 3.8 mmol/L (3.5-5.1) Chloride Level 104 mmol/L (98-107) Carbon Dioxide Level 29 mmol/L (21-32) Anion Gap 8 (6-14) Blood Urea Nitrogen 8 mg/dL (8-26) Creatinine 0.8 mg/dL (0.7-1.3) Estimated GFR (Cockcroft-Gault) 96.7 Glucose Level 113 mg/dL (70-99) Calcium Level 8.9 mg/dL (8.5-10.1) Micro Micro BLD CULT RESULT 1 Preliminary Comment Streptococcus pneumoniae Objective Assessment Strep pneumonia bacteremia 1/6 bc positive ,source lung Community-acquired pneumonia. Fever - resolved Leukocytosis improving Hypoxemia. Tobaccoism. Plan Plan of Care [facility] supportive care encouraged to quit smoking GIOVANY JOE MD Feb 17, 2017 12:39
[2017-02-17] MEDS: IBUPROFEN 400 MG TABLET. PO PRN ×2 (13:58→20:54)
[2017-02-17 15:00] VITALS: BP 112/80
[2017-02-17 20:00] VITALS: BP 118/77
[2017-02-17 23:28] VITALS: BP 117/82
[2017-02-18 03:18] VITALS: BP 120/75
[2017-02-18 04:32] LABS: BASO % 0 % (0-3); EOS % 2 % (0-3); HEMOGLOBIN 12.3 g/dL (13.0-17.5); LYMPH # 2.3 x10^3/uL (1.0-4.8); LYMPH % 20 % (24-48); MEAN CORPUSCULAR HEMOGLOBIN 30 pg (25-35); MEAN CORPUSCULAR HGB CONC 33 g/dL (31-37); MEAN CORPUSCULAR VOLUME 90 fL (79-100); MONO % 16 % (0-9); NEUT % 62 % (31-73); PLATELET COUNT 366 x10^3/uL (140-400); RED BLOOD COUNT 4.12 x10^6/uL (4.30-5.70); RED CELL DISTRIBUTION WIDTH 13.9 % (11.5-14.5)
[2017-02-18 04:47] LABS: CALCIUM 8.6 mg/dL (8.5-10.1); CREATININE 0.8 mg/dL (0.7-1.3); GFR 96.7
[2017-02-18 07:00] VITALS: BP 124/84
[2017-02-18] MEDS: IPRATRPIUM/ALBUTEROL 0.5/2.5MG 3 ML NEBU. NEB SCH ×5 (08:08→22:00)
--- NOTE | 2017-02-18 08:30 | RAD ---
Indication: Pneumonia. Time of exam 0711 hours. Correlation is made with prior chest from 02/13/2017. Heart size is normal. Infiltrate right upper lobe has shown moderate clearing since examination 5 days earlier. There is some residual infiltrate remaining. Left lung is clear. No pneumothorax is seen. Impression: Partial clearing of right upper lobe pneumonia when compared with examination 5 days earlier.
[2017-02-18] MEDS: LACTOBACILLUS RHAMNOSUS GG 1 CAPSULE. PO SCH ×2 (10:04→21:10)
[2017-02-18] MEDS: NICOTINE 21MG PATCH. TD SCH (10:04)
[2017-02-18 11:00] VITALS: BP 96/66
--- NOTE | 2017-02-18 11:04 | PDOC ---
PROGRESS NOTES Chief Complaint Chief Complaint Acute hypoxic respiratory failure, sepsis J[facility] PNA Bacteremia: GPC in 1/4 bottles. strep pneumo, prob from PNA Pleuritic CP Leukocytosis Nicotine use History of Present Illness History of Present Illness Patient even though patient reports feeling better he failed the 6-minute walk and will need to repeat and pass in order to discharge back to his home. Blood cultures demonstrated gram + cocci most likely strep pneumoniae from his PNA. Patient receiving levaquin for both. Able to be discharged when okay with ID. Vitals Vitals Vital Signs Date Time Temp Pulse Resp B/P (MAP) Pulse Ox O2 Delivery O2 Flow Rate FiO2 02/18/17 08:09 93 Nasal Cannula 3.0 02/18/17 07:00 98.0 80 18 124/84 (97) 98.0 Physical Exam General: Alert, Oriented X3, Cooperative, No acute distress Heart: Regular rate Lungs: Other (decrease right) Abdomen: Normal bowel sounds, Soft, No tenderness Extremities: No clubbing, No edema Skin: No rashes Labs LABS Laboratory Tests Test 02/18/17 04:10 White Blood Count 12.0 x10^3/uL (4.0-11.0) Red Blood Count 4.12 x10^6/uL (4.30-5.70) Hemoglobin 12.3 g/dL (13.0-17.5) Hematocrit 37.0 % (39.0-53.0) Mean Corpuscular Volume 90 fL (79-100) Mean Corpuscular Hemoglobin 30 pg (25-35) Mean Corpuscular Hemoglobin Concent 33 g/dL (31-37) Red Cell Distribution Width 13.9 % (11.5-14.5) Platelet Count 366 x10^3/uL (140-400) Neutrophils (%) (Auto) 62 % (31-73) Lymphocytes (%) (Auto) 20 % (24-48) Monocytes (%) (Auto) 16 % (0-9) Eosinophils (%) (Auto) 2 % (0-3) Basophils (%) (Auto) 0 % (0-3) Neutrophils # (Auto) 7.4 x10^3uL (1.8-7.7) Lymphocytes # (Auto) 2.3 x10^3/uL (1.0-4.8) Monocytes # (Auto) 2.0 x10^3/uL (0.0-1.1) Eosinophils # (Auto) 0.2 x10^3/uL (0.0-0.7) Basophils # (Auto) 0.0 x10^3/uL (0.0-0.2) Sodium Level 140 mmol/L (136-145) Potassium Level 4.0 mmol/L (3.5-5.1) Chloride Level 104 mmol/L (98-107) Carbon Dioxide Level 28 mmol/L (21-32) Anion Gap 8 (6-14) Blood Urea Nitrogen 10 mg/dL (8-26) Creatinine 0.8 mg/dL (0.7-1.3) Estimated GFR (Cockcroft-Gault) 96.7 Glucose Level 109 mg/dL (70-99) Calcium Level 8.6 mg/dL (8.5-10.1) Review of Systems Review of Systems Patient reports feeling better, patient denies SOB Assessment and Plan Assessmemt and Plan Assessment: Acute hypoxic respiratory failure, sepsis J[facility] PNA Bacteremia: GPC in 1/4 bottles. strep pneumo, prob from PNA Pleuritic CP Leukocytosis Nicotine use Plan: Continue levaquin Breathing treatments PRN O2 with goal to wean Repeat 6-minute walk PT/OT Recheck labs Appreciate subspecialist input Okay to d/c when cleared by ID Problems: Comment Review of Relevant I have reviewed the following items luis (where applicable) has been applied. Labs Laboratory Tests Test 02/17/17 04:30 02/18/17 04:10 White Blood Count 12.7 x10^3/uL (4.0-11.0) 12.0 x10^3/uL (4.0-11.0) Red Blood Count 4.35 x10^6/uL (4.30-5.70) 4.12 x10^6/uL (4.30-5.70) Hemoglobin 13.1 g/dL (13.0-17.5) 12.3 g/dL (13.0-17.5) Hematocrit 39.4 % (39.0-53.0) 37.0 % (39.0-53.0) Mean Corpuscular Volume 91 fL (79-100) 90 fL (79-100) Mean Corpuscular Hemoglobin 30 pg (25-35) 30 pg (25-35) Mean Corpuscular Hemoglobin Concent 33 g/dL (31-37) 33 g/dL (31-37) Red Cell Distribution Width 14.1 % (11.5-14.5) 13.9 % (11.5-14.5) Platelet Count 365 x10^3/uL (140-400) 366 x10^3/uL (140-400) Neutrophils (%) (Auto) 67 % (31-73) 62 % (31-73) Lymphocytes (%) (Auto) 15 % (24-48) 20 % (24-48) Monocytes (%) (Auto) 16 % (0-9) 16 % (0-9) Eosinophils (%) (Auto) 1 % (0-3) 2 % (0-3) Basophils (%) (Auto) 1 % (0-3) 0 % (0-3) Neutrophils # (Auto) 8.6 x10^3uL (1.8-7.7) 7.4 x10^3uL (1.8-7.7) Lymphocytes # (Auto) 1.9 x10^3/uL (1.0-4.8) 2.3 x10^3/uL (1.0-4.8) Monocytes # (Auto) 2.0 x10^3/uL (0.0-1.1) 2.0 x10^3/uL (0.0-1.1) Eosinophils # (Auto) 0.2 x10^3/uL (0.0-0.7) 0.2 x10^3/uL (0.0-0.7) Basophils # (Auto) 0.1 x10^3/uL (0.0-0.2) 0.0 x10^3/uL (0.0-0.2) Sodium Level 141 mmol/L (136-145) 140 mmol/L (136-145) Potassium Level 3.8 mmol/L (3.5-5.1) 4.0 mmol/L (3.5-5.1) Chloride Level 104 mmol/L (98-107) 104 mmol/L (98-107) Carbon Dioxide Level 29 mmol/L (21-32) 28 mmol/L (21-32) Anion Gap 8 (6-14) 8 (6-14) Blood Urea Nitrogen 8 mg/dL (8-26) 10 mg/dL (8-26) Creatinine 0.8 mg/dL (0.7-1.3) 0.8 mg/dL (0.7-1.3) Estimated GFR (Cockcroft-Gault) 96.7 96.7 Glucose Level 113 mg/dL (70-99) 109 mg/dL (70-99) Calcium Level 8.9 mg/dL (8.5-10.1) 8.6 mg/dL (8.5-10.1) Laboratory Tests Test 02/18/17 04:10 White Blood Count 12.0 x10^3/uL (4.0-11.0) Red Blood Count 4.12 x10^6/uL (4.30-5.70) Hemoglobin 12.3 g/dL (13.0-17.5) Hematocrit 37.0 % (39.0-53.0) Mean Corpuscular Volume 90 fL (79-100) Mean Corpuscular Hemoglobin 30 pg (25-35) Mean Corpuscular Hemoglobin Concent 33 g/dL (31-37) Red Cell Distribution Width 13.9 % (11.5-14.5) Platelet Count 366 x10^3/uL (140-400) Neutrophils (%) (Auto) 62 % (31-73) Lymphocytes (%) (Auto) 20 % (24-48) Monocytes (%) (Auto) 16 % (0-9) Eosinophils (%) (Auto) 2 % (0-3) Basophils (%) (Auto) 0 % (0-3) Neutrophils # (Auto) 7.4 x10^3uL (1.8-7.7) Lymphocytes # (Auto) 2.3 x10^3/uL (1.0-4.8) Monocytes # (Auto) 2.0 x10^3/uL (0.0-1.1) Eosinophils # (Auto) 0.2 x10^3/uL (0.0-0.7) Basophils # (Auto) 0.0 x10^3/uL (0.0-0.2) Sodium Level 140 mmol/L (136-145) Potassium Level 4.0 mmol/L (3.5-5.1) Chloride Level 104 mmol/L (98-107) Carbon Dioxide Level 28 mmol/L (21-32) Anion Gap 8 (6-14) Blood Urea Nitrogen 10 mg/dL (8-26) Creatinine 0.8 mg/dL (0.7-1.3) Estimated GFR (Cockcroft-Gault) 96.7 Glucose Level 109 mg/dL (70-99) Calcium Level 8.6 mg/dL (8.5-10.1) Microbiology 02/13/17 Blood Culture - Final, Complete 02/13/17 Blood Culture Result 1 (JOCELINE) - Final, Complete 02/13/17 Antimicrobic Susceptibility - Final, Complete Medications Current Medications Albuterol Sulfate (Ventolin Neb Soln) 2.5 mg 1X ONCE NEB Last administered on 02/13/17 12:17; Start 02/13/17 at 12:15; Stop 02/13/17 at 12:16; Status DC Albuterol Sulfate (Ventolin Neb Soln) 2.5 mg STK-MED ONCE .ROUTE ; Start at 12:16; Stop 02/13/17 at 12:17; Status DC Ceftriaxone Sodium 50 ml @ 100 mls/hr 1X ONCE IV Last administered on 15:02; Start 02/13/17 at 13:00; Stop 02/13/17 at 13:29; Status DC Azithromycin 250 ml @ 250 mls/hr 1X ONCE IV Last administered on 02/13/17 13:56; Start 02/13/17 at 13:00; Stop 02/13/17 at 13:59; Status DC Sodium Chloride 1,000 ml @ 1,000 mls/hr Q1H IV Last administered on 16:12; Start 02/13/17 at 15:12; Stop 02/13/17 at 17:11; Status DC Ibuprofen (Motrin) 400 mg PRN Q6HRS PRN PO INFLAMMATION Last administered on 20:54; Start 02/13/17 at 15:45 Info (Do NOT chart on this placeholder) 1 each PRN 1X PRN MC SEE COMMENTS; Start 02/13/17 at 17:45; Status UNV Pneumococcal Polyvalent Vaccine (Do NOT chart on this placeholder) 1 each PRN 1X PRN MC SEE COMMENTS; Start 02/13/17 at 17:45; Status UNV Influenza Virus Vaccine Quadrival (Fluarix Quad [id number] Syringe) 0.5 ml ONCE ONCE VAX IM ; Start 02/13/17 at 18:00; Stop 02/13/17 at 18:01; Status DC Azithromycin 500 mg/Sodium Chloride 250 ml @ 250 mls/hr Q24H IV ; Start at 16:00; Stop 02/14/17 at 16:00; Status DC Levofloxacin/ Dextrose 100 ml @ 100 mls/hr Q24H IV Last administered on 14:49; Start 02/14/17 at 16:00; Stop 02/15/17 at 13:27; Status DC Albuterol/ Ipratropium (Duoneb) 3 ml RTQID NEB Last administered on 02/15/17 12:01; Start 02/13/17 at 20:00; Stop 02/15/17 at 13:27; Status DC Vancomycin HCl 1.75 gm/Dextrose/ Sodium Chloride 500 ml @ 500 mls/hr 1X ONCE IV Last administered on 02/14/17 09:19; Start 02/14/17 at 09:00; Stop 02/14 at 09:59; Status DC Vancomycin HCl (Vanco Per Pharmacy) 1 each PRN DAILY PRN MC SEE COMMENTS Last administered on 02/14/17 11:17; Start 02/14/17 at 08:45; Stop 02/15/17 at 09 :11; Status DC Nicotine (Nicoderm Cq 21mg) 1 patch DAILY TD Last administered on 02/18/17 10 :04; Start 02/14/17 at 11:15 Vancomycin HCl 1 gm/Sodium Chloride 250 ml @ 250 mls/hr Q12H IV Last administered on 02/15/17 08:56; Start 02/14/17 at 21:00; Stop 02/15/17 at 09 :11; Status DC Vancomycin HCl 1 each 1X ONCE MC ; Start 02/15/17 at 20:30; Stop 02/15/17 at 20:31; Status Cancel Lactobacillus Rhamnosus (Culturelle) 1 cap BID PO Last administered on 10:04; Start 02/14/17 at 21:00 Iohexol (Omnipaque 300 Mg/ml) 75 ml 1X ONCE IV Last administered on 14:37; Start 02/14/17 at 14:30; Stop 02/14/17 at 14:31; Status DC Info (Do NOT chart on this entry -- for MONITORING) 1 each PRN DAILY PRN MC SEE COMMENTS; Start 02/14/17 at 14:30; Stop 02/16/17 at 14:29; Status DC Albuterol/ Ipratropium (Duoneb) 3 ml Q4HRS W/A NEB Last administered on 08:08; Start 02/15/17 at 14:00 Levofloxacin (Levaquin) 750 mg DAILY06 PO Last administered on 02/18/17 06:10 ; Start 02/16/17 at 15:00 Nicotine (Nicoderm Cq 21mg) 1 patch 1X ONCE TD Last administered on 13:44; Start 02/15/17 at 13:45; Stop 02/15/17 at 13:46; Status DC Active Scripts Active NICODERM CQ 14mg (Nicotine) 1 Each Patch.td24 1 Patch TP DAILY Cipro (Ciprofloxacin Hcl) 500 Mg Tablet 1 Tab PO BID Combivent Respimat Inhal (Ipratropium/Albuterol Sulfate) 4 Gm Aer.w.adap 1 Inh IH QID Vitals/I & O Vital Sign - Last 24 Hours 02/17/17 02/17/17 02/17/17 02/17/17 12:52 15:00 16:27 20:00 Temp 98.0 98.0 Pulse 94 Resp 18 B/P (MAP) 112/80 (91) Pulse Ox 93 O2 Delivery Nasal Cannula Nasal Cannula Nasal Cannula Nasal Cannula O2 Flow Rate 3.5 4.0 3.5 3.5 02/17/17 02/17/17 02/17/17 02/18/17 20:00 20:39 23:28 03:18 Temp 97.4 98.0 97.6 97.4 98.0 97.6 Pulse 86 85 80 Resp 18 18 16 B/P (MAP) 118/77 (91) 117/82 (94) 120/75 (90) Pulse Ox 94 95 94 93 O2 Delivery Nasal Cannula Nasal Cannula Nasal Cannula Nasal Cannula O2 Flow Rate 3.0 3.5 3.0 3.0 02/18/17 02/18/17 02/18/17 07:00 08:00 08:09 Temp 98.0 98.0 Pulse 80 Resp 18 B/P (MAP) 124/84 (97) Pulse Ox 94 93 O2 Delivery Nasal Cannula Nasal Cannula Nasal Cannula O2 Flow Rate 3.0 2.0 3.0 Intake and Output 02/17/17 02/17/17 02/18/17 15:00 23:00 07:00 Intake Total 820 ml 560 ml Balance 820 ml 560 ml SAMIA FAUSTIN III DO Feb 18, 2017 11:04
--- NOTE | 2017-02-18 11:04 | PDOC ---
Infectious Disease Note Subjective Subjective Feeling better, less cough and less right-sided chest discomfort Failed 6 minute walk, remains on O2 supplementation Denies SOA No fever ROS ROS GEN: Denies fevers, chills, sweats HEENT: Denies blurred vision, sore throat CV: Denies chest pain RESP: Denies shortness of air, cough GI: Denies n/v/d NEURO: Denies confusion, dizziness MSK: Denies weakness, joint pain/swelling Vital Sign Vital Signs Vital Signs Date Time Temp Pulse Resp B/P (MAP) Pulse Ox O2 Delivery O2 Flow Rate FiO2 02/18/17 08:09 93 Nasal Cannula 3.0 02/18/17 07:00 98.0 80 18 124/84 (97) 98.0 Physical Exam PHYSICAL EXAM GENERAL: NAD, Alertxox3 HEENT: PERRL, OC/OP NECK: Supple, no JVD, LUNGS: dec bs at bases, improving HEART: S1S2, no gallop, no murmur ABD: Soft, NT, no organomegaly, no rebound EXT: No edema, no cyanosis 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, 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, no focal neurologic deficit SKIN: No rash IV: ok Labs Lab Laboratory Tests Test 02/18/17 04:10 White Blood Count 12.0 x10^3/uL (4.0-11.0) Red Blood Count 4.12 x10^6/uL (4.30-5.70) Hemoglobin 12.3 g/dL (13.0-17.5) Hematocrit 37.0 % (39.0-53.0) Mean Corpuscular Volume 90 fL (79-100) Mean Corpuscular Hemoglobin 30 pg (25-35) Mean Corpuscular Hemoglobin Concent 33 g/dL (31-37) Red Cell Distribution Width 13.9 % (11.5-14.5) Platelet Count 366 x10^3/uL (140-400) Neutrophils (%) (Auto) 62 % (31-73) Lymphocytes (%) (Auto) 20 % (24-48) Monocytes (%) (Auto) 16 % (0-9) Eosinophils (%) (Auto) 2 % (0-3) Basophils (%) (Auto) 0 % (0-3) Neutrophils # (Auto) 7.4 x10^3uL (1.8-7.7) Lymphocytes # (Auto) 2.3 x10^3/uL (1.0-4.8) Monocytes # (Auto) 2.0 x10^3/uL (0.0-1.1) Eosinophils # (Auto) 0.2 x10^3/uL (0.0-0.7) Basophils # (Auto) 0.0 x10^3/uL (0.0-0.2) Sodium Level 140 mmol/L (136-145) Potassium Level 4.0 mmol/L (3.5-5.1) Chloride Level 104 mmol/L (98-107) Carbon Dioxide Level 28 mmol/L (21-32) Anion Gap 8 (6-14) Blood Urea Nitrogen 10 mg/dL (8-26) Creatinine 0.8 mg/dL (0.7-1.3) Estimated GFR (Cockcroft-Gault) 96.7 Glucose Level 109 mg/dL (70-99) Calcium Level 8.6 mg/dL (8.5-10.1) Micro Micro BLD CULT RESULT 1 Preliminary Comment Streptococcus pneumoniae Objective Assessment Strep pneumonia bacteremia 1/6 bc positive ,source lung Community-acquired pneumonia. Fever - resolved Leukocytosis improving Hypoxemia. Tobaccoism. Plan Plan of Care Continue Levaquin supportive care encouraged to quit smoking GIOVANY JOE MD Feb 18, 2017 11:04
[2017-02-18] MEDS: IBUPROFEN 400 MG TABLET. PO PRN ×2 (13:37→21:21)
--- NOTE | 2017-02-18 18:24 | PDOC ---
PULMONARY PROGRESS NOTES Subjective feels better Vitals Vital Signs Date Time Temp Pulse Resp B/P (MAP) Pulse Ox O2 Delivery O2 Flow Rate FiO2 02/18/17 15:59 Nasal Cannula 3.0 02/18/17 11:00 98.5 93 16 96/66 (76) 95 98.5 ROS: No Nausea, No Chest Pain, No Abdominal Pain, No Increase Cough General: Alert, No acute distress Lungs: Other (decrease right) Cardiovascular: S1 Abdomen: Soft Neuro Exam: Alert Extremities: No Edema Skin: Warm Labs Laboratory Tests Test 02/17/17 04:30 02/18/17 04:10 White Blood Count 12.7 x10^3/uL (4.0-11.0) 12.0 x10^3/uL (4.0-11.0) Red Blood Count 4.35 x10^6/uL (4.30-5.70) 4.12 x10^6/uL (4.30-5.70) Hemoglobin 13.1 g/dL (13.0-17.5) 12.3 g/dL (13.0-17.5) Hematocrit 39.4 % (39.0-53.0) 37.0 % (39.0-53.0) Mean Corpuscular Volume 91 fL (79-100) 90 fL (79-100) Mean Corpuscular Hemoglobin 30 pg (25-35) 30 pg (25-35) Mean Corpuscular Hemoglobin Concent 33 g/dL (31-37) 33 g/dL (31-37) Red Cell Distribution Width 14.1 % (11.5-14.5) 13.9 % (11.5-14.5) Platelet Count 365 x10^3/uL (140-400) 366 x10^3/uL (140-400) Neutrophils (%) (Auto) 67 % (31-73) 62 % (31-73) Lymphocytes (%) (Auto) 15 % (24-48) 20 % (24-48) Monocytes (%) (Auto) 16 % (0-9) 16 % (0-9) Eosinophils (%) (Auto) 1 % (0-3) 2 % (0-3) Basophils (%) (Auto) 1 % (0-3) 0 % (0-3) Neutrophils # (Auto) 8.6 x10^3uL (1.8-7.7) 7.4 x10^3uL (1.8-7.7) Lymphocytes # (Auto) 1.9 x10^3/uL (1.0-4.8) 2.3 x10^3/uL (1.0-4.8) Monocytes # (Auto) 2.0 x10^3/uL (0.0-1.1) 2.0 x10^3/uL (0.0-1.1) Eosinophils # (Auto) 0.2 x10^3/uL (0.0-0.7) 0.2 x10^3/uL (0.0-0.7) Basophils # (Auto) 0.1 x10^3/uL (0.0-0.2) 0.0 x10^3/uL (0.0-0.2) Sodium Level 141 mmol/L (136-145) 140 mmol/L (136-145) Potassium Level 3.8 mmol/L (3.5-5.1) 4.0 mmol/L (3.5-5.1) Chloride Level 104 mmol/L (98-107) 104 mmol/L (98-107) Carbon Dioxide Level 29 mmol/L (21-32) 28 mmol/L (21-32) Anion Gap 8 (6-14) 8 (6-14) Blood Urea Nitrogen 8 mg/dL (8-26) 10 mg/dL (8-26) Creatinine 0.8 mg/dL (0.7-1.3) 0.8 mg/dL (0.7-1.3) Estimated GFR (Cockcroft-Gault) 96.7 96.7 Glucose Level 113 mg/dL (70-99) 109 mg/dL (70-99) Calcium Level 8.9 mg/dL (8.5-10.1) 8.6 mg/dL (8.5-10.1) Laboratory Tests Test 02/18/17 04:10 White Blood Count 12.0 x10^3/uL (4.0-11.0) Red Blood Count 4.12 x10^6/uL (4.30-5.70) Hemoglobin 12.3 g/dL (13.0-17.5) Hematocrit 37.0 % (39.0-53.0) Mean Corpuscular Volume 90 fL (79-100) Mean Corpuscular Hemoglobin 30 pg (25-35) Mean Corpuscular Hemoglobin Concent 33 g/dL (31-37) Red Cell Distribution Width 13.9 % (11.5-14.5) Platelet Count 366 x10^3/uL (140-400) Neutrophils (%) (Auto) 62 % (31-73) Lymphocytes (%) (Auto) 20 % (24-48) Monocytes (%) (Auto) 16 % (0-9) Eosinophils (%) (Auto) 2 % (0-3) Basophils (%) (Auto) 0 % (0-3) Neutrophils # (Auto) 7.4 x10^3uL (1.8-7.7) Lymphocytes # (Auto) 2.3 x10^3/uL (1.0-4.8) Monocytes # (Auto) 2.0 x10^3/uL (0.0-1.1) Eosinophils # (Auto) 0.2 x10^3/uL (0.0-0.7) Basophils # (Auto) 0.0 x10^3/uL (0.0-0.2) Sodium Level 140 mmol/L (136-145) Potassium Level 4.0 mmol/L (3.5-5.1) Chloride Level 104 mmol/L (98-107) Carbon Dioxide Level 28 mmol/L (21-32) Anion Gap 8 (6-14) Blood Urea Nitrogen 10 mg/dL (8-26) Creatinine 0.8 mg/dL (0.7-1.3) Estimated GFR (Cockcroft-Gault) 96.7 Glucose Level 109 mg/dL (70-99) Calcium Level 8.6 mg/dL (8.5-10.1) Medications Active Scripts Medications Dose Route/Sig Max Daily Dose Days Date Category Cipro (Ciprofloxacin Hcl) 500 Mg Tablet 1 Tab PO BID 02/15/17 Rx Combivent Respimat Inhal (Ipratropium/Albuterol Sulfate) 4 Gm Aer.w.adap 1 Inh IH QID 02/15/[address] CHEST 1. Extensive right lung infiltrate with dominant involvement of the right upper lobe, compatible with pneumonia. No centrally obstructing mass is seen. Further imaging follow-up is suggested to exclude an occult neoplasm. 2. Small right pleural effusion with moderate right basilar atelectasis. 3. Emphysema. 4. Borderline enlarged mediastinal lymph nodes are probably reactive. Impression . 1. Pneumonia 2. Acute hypoxic respiratory failure secondary AECOPD and pneumonia 3. Abnormal chest x-ray with right upper lobe consolidation, right hilar fullness. Less likely postobstructive process, CT chest reviewed, no central mass 4. Suspected underlying chronic obstructive pulmonary disease. 5. Bacteremia, strep.pneumo Plan . CXR has improved 6 min walk in am change to oral antibx and c/c in am follow up in my office in [place] SUSAN KELLOGG MD Feb 18, 2017 18:24
[2017-02-18 19:00] VITALS: BP 105/69
[2017-02-18 23:00] VITALS: BP 106/69
[2017-02-19 03:00] VITALS: BP 99/72
[2017-02-19 05:44] LABS: BASO # 0.1 x10^3/uL (0.0-0.2); BASO % 1 % (0-3); EOS % 2 % (0-3); HEMATOCRIT 40.3 % (39.0-53.0); LYMPH # 2.5 x10^3/uL (1.0-4.8); LYMPH % 22 % (24-48); MEAN CORPUSCULAR HEMOGLOBIN 29 pg (25-35); MEAN CORPUSCULAR HGB CONC 32 g/dL (31-37); MEAN CORPUSCULAR VOLUME 91 fL (79-100); MONO % 12 % (0-9); NEUT % 64 % (31-73); PLATELET COUNT 477 x10^3/uL (140-400); RED BLOOD COUNT 4.45 x10^6/uL (4.30-5.70); WHITE BLOOD COUNT 11.3 x10^3/uL (4.0-11.0)
[2017-02-19 06:05] LABS: ALBUMIN 2.3 g/dL (3.4-5.0); ALBUMIN/GLOBULIN RATIO 0.5 (1.0-1.7); CALCIUM 9.2 mg/dL (8.5-10.1); CREATININE 0.9 mg/dL (0.7-1.3); GFR 84.4; TOTAL BILIRUBIN 0.3 mg/dL (0.2-1.0)
[2017-02-19 07:25] VITALS: BP 127/79
[2017-02-19] MEDS: IPRATRPIUM/ALBUTEROL 0.5/2.5MG 3 ML NEBU. NEB SCH ×2 (08:06→11:51)
[2017-02-19] MEDS: NICOTINE 21MG PATCH. TD SCH (09:36)
[2017-02-19] MEDS: LACTOBACILLUS RHAMNOSUS GG 1 CAPSULE. PO SCH (09:36)
--- NOTE | 2017-02-19 10:17 | PDOC ---
Infectious Disease Note Subjective Subjective Feeling better, less cough and less right-sided chest discomfort Denies SOA No fever no n/v/d ambulating around the hallways ROS ROS GEN: Denies fevers, chills, sweats HEENT: Denies blurred vision, sore throat CV: Denies chest pain RESP: Denies shortness of air, cough GI: Denies n/v/d NEURO: Denies confusion, dizziness MSK: Denies weakness, joint pain/swelling Vital Sign Vital Signs Vital Signs Date Time Temp Pulse Resp B/P (MAP) Pulse Ox O2 Delivery O2 Flow Rate FiO2 02/19/17 08:08 91 Room Air 02/19/17 07:25 98.3 89 16 127/79 (95) 3.0 98.3 Physical Exam PHYSICAL EXAM GENERAL: NAD, Alert HEENT: PERRL, OC/OP NECK: Supple, no JVD, no LN LUNGS: dec bs HEART: S1S2, no gallop, no murmur ABD: Soft, NT, no organomegaly, no rebound EXT: No edema, no cyanosis 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, 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, no focal neurologic deficit SKIN: No rash IV: ok Labs Lab Laboratory Tests Test 02/19/17 04:50 White Blood Count 11.3 x10^3/uL (4.0-11.0) Red Blood Count 4.45 x10^6/uL (4.30-5.70) Hemoglobin 13.0 g/dL (13.0-17.5) Hematocrit 40.3 % (39.0-53.0) Mean Corpuscular Volume 91 fL (79-100) Mean Corpuscular Hemoglobin 29 pg (25-35) Mean Corpuscular Hemoglobin Concent 32 g/dL (31-37) Red Cell Distribution Width 14.0 % (11.5-14.5) Platelet Count 477 x10^3/uL (140-400) Neutrophils (%) (Auto) 64 % (31-73) Lymphocytes (%) (Auto) 22 % (24-48) Monocytes (%) (Auto) 12 % (0-9) Eosinophils (%) (Auto) 2 % (0-3) Basophils (%) (Auto) 1 % (0-3) Neutrophils # (Auto) 7.2 x10^3uL (1.8-7.7) Lymphocytes # (Auto) 2.5 x10^3/uL (1.0-4.8) Monocytes # (Auto) 1.4 x10^3/uL (0.0-1.1) Eosinophils # (Auto) 0.2 x10^3/uL (0.0-0.7) Basophils # (Auto) 0.1 x10^3/uL (0.0-0.2) Sodium Level 141 mmol/L (136-145) Potassium Level 5.0 mmol/L (3.5-5.1) Chloride Level 104 mmol/L (98-107) Carbon Dioxide Level 28 mmol/L (21-32) Anion Gap 9 (6-14) Blood Urea Nitrogen 12 mg/dL (8-26) Creatinine 0.9 mg/dL (0.7-1.3) Estimated GFR (Cockcroft-Gault) 84.4 BUN/Creatinine Ratio 13 (6-20) Glucose Level 101 mg/dL (70-99) Calcium Level 9.2 mg/dL (8.5-10.1) Total Bilirubin 0.3 mg/dL (0.2-1.0) Aspartate Amino Transf (AST/SGOT) 29 U/L (15-37) Alanine Aminotransferase (ALT/SGPT) 43 U/L (16-63) Alkaline Phosphatase 81 U/L (46-116) Total Protein 7.0 g/dL (6.4-8.2) Albumin 2.3 g/dL (3.4-5.0) Albumin/Globulin Ratio 0.5 (1.0-1.7) Micro Micro BLD CULT Streptococcus pneumoniae Objective Assessment Strep pneumonia bacteremia / bc positive ,source lung Community-acquired pneumonia. Fever - resolved Leukocytosis resolved Hypoxemia. resolved Tobaccoism. Plan Plan of Care Continue Levaquin and lactobacillus ok to dc home from ID standpoint to complete total 14 days of tx with levaquin supportive care encouraged to quit smoking FU with PCP GIOVANY JOE MD Feb 19, 2017 10:17
[2017-02-19 11:46] VITALS: BP 112/78
--- NOTE | 2017-02-19 12:44 | PDOC ---
PROGRESS NOTES Chief Complaint Chief Complaint Acute hypoxic respiratory failure, sepsis JACKSON PNA gram + cocci bacteremia Pleuritic CP Leukocytosis Nicotine use History of Present Illness History of Present Illness Patient even though patient reports feeling better he failed the 6-minute walk and will need to repeat and pass in order to discharge back to his home. Blood cultures demonstrated gram + cocci most likely strep pneumoniae from his PNA. Patient receiving levaquin for both. Discussed with patient and Dr. Mendes that patient would benefit from at home use of oxygen and that he is to follow up with pulmonology outpatient in April. Going to await results of repeat 6- minute walk. Able to be discharged when okay with ID. Vitals Vitals Vital Signs Date Time Temp Pulse Resp B/P (MAP) Pulse Ox O2 Delivery O2 Flow Rate FiO2 02/19/17 11:52 Room Air 02/19/17 11:46 98.1 87 16 112/78 (89) 92 3.0 98.1 Physical Exam General: Alert, Oriented X3, Cooperative, No acute distress Heart: Regular rate Lungs: Other (improving air movement in RU lobe) Abdomen: Normal bowel sounds, Soft, No tenderness Extremities: No clubbing, No edema Skin: No rashes Labs LABS Laboratory Tests Test 02/19/17 04:50 White Blood Count 11.3 x10^3/uL (4.0-11.0) Red Blood Count 4.45 x10^6/uL (4.30-5.70) Hemoglobin 13.0 g/dL (13.0-17.5) Hematocrit 40.3 % (39.0-53.0) Mean Corpuscular Volume 91 fL (79-100) Mean Corpuscular Hemoglobin 29 pg (25-35) Mean Corpuscular Hemoglobin Concent 32 g/dL (31-37) Red Cell Distribution Width 14.0 % (11.5-14.5) Platelet Count 477 x10^3/uL (140-400) Neutrophils (%) (Auto) 64 % (31-73) Lymphocytes (%) (Auto) 22 % (24-48) Monocytes (%) (Auto) 12 % (0-9) Eosinophils (%) (Auto) 2 % (0-3) Basophils (%) (Auto) 1 % (0-3) Neutrophils # (Auto) 7.2 x10^3uL (1.8-7.7) Lymphocytes # (Auto) 2.5 x10^3/uL (1.0-4.8) Monocytes # (Auto) 1.4 x10^3/uL (0.0-1.1) Eosinophils # (Auto) 0.2 x10^3/uL (0.0-0.7) Basophils # (Auto) 0.1 x10^3/uL (0.0-0.2) Sodium Level 141 mmol/L (136-145) Potassium Level 5.0 mmol/L (3.5-5.1) Chloride Level 104 mmol/L (98-107) Carbon Dioxide Level 28 mmol/L (21-32) Anion Gap 9 (6-14) Blood Urea Nitrogen 12 mg/dL (8-26) Creatinine 0.9 mg/dL (0.7-1.3) Estimated GFR (Cockcroft-Gault) 84.4 BUN/Creatinine Ratio 13 (6-20) Glucose Level 101 mg/dL (70-99) Calcium Level 9.2 mg/dL (8.5-10.1) Total Bilirubin 0.3 mg/dL (0.2-1.0) Aspartate Amino Transf (AST/SGOT) 29 U/L (15-37) Alanine Aminotransferase (ALT/SGPT) 43 U/L (16-63) Alkaline Phosphatase 81 U/L (46-116) Total Protein 7.0 g/dL (6.4-8.2) Albumin 2.3 g/dL (3.4-5.0) Albumin/Globulin Ratio 0.5 (1.0-1.7) Review of Systems Review of Systems Patient reports feeling better Patient denies SOB Assessment and Plan Assessmemt and Plan Assessment: Acute hypoxic respiratory failure, sepsis JACKSON PNA gram + cocci bacteremia Pleuritic CP Leukocytosis Nicotine use Plan: Discuss patient care plan with Dr. Mendes Await results of repeat 6-minute walk PRN O2 PT/OT Home meds Encourage smoking cessation Discharge when okay with ID Problems: Comment Review of Relevant I have reviewed the following items luis (where applicable) has been applied. Labs Laboratory Tests Test 02/18/17 04:10 02/19/17 04:50 White Blood Count 12.0 x10^3/uL (4.0-11.0) 11.3 x10^3/uL (4.0-11.0) Red Blood Count 4.12 x10^6/uL (4.30-5.70) 4.45 x10^6/uL (4.30-5.70) Hemoglobin 12.3 g/dL (13.0-17.5) 13.0 g/dL (13.0-17.5) Hematocrit 37.0 % (39.0-53.0) 40.3 % (39.0-53.0) Mean Corpuscular Volume 90 fL (79-100) 91 fL (79-100) Mean Corpuscular Hemoglobin 30 pg (25-35) 29 pg (25-35) Mean Corpuscular Hemoglobin Concent 33 g/dL (31-37) 32 g/dL (31-37) Red Cell Distribution Width 13.9 % (11.5-14.5) 14.0 % (11.5-14.5) Platelet Count 366 x10^3/uL (140-400) 477 x10^3/uL (140-400) Neutrophils (%) (Auto) 62 % (31-73) 64 % (31-73) Lymphocytes (%) (Auto) 20 % (24-48) 22 % (24-48) Monocytes (%) (Auto) 16 % (0-9) 12 % (0-9) Eosinophils (%) (Auto) 2 % (0-3) 2 % (0-3) Basophils (%) (Auto) 0 % (0-3) 1 % (0-3) Neutrophils # (Auto) 7.4 x10^3uL (1.8-7.7) 7.2 x10^3uL (1.8-7.7) Lymphocytes # (Auto) 2.3 x10^3/uL (1.0-4.8) 2.5 x10^3/uL (1.0-4.8) Monocytes # (Auto) 2.0 x10^3/uL (0.0-1.1) 1.4 x10^3/uL (0.0-1.1) Eosinophils # (Auto) 0.2 x10^3/uL (0.0-0.7) 0.2 x10^3/uL (0.0-0.7) Basophils # (Auto) 0.0 x10^3/uL (0.0-0.2) 0.1 x10^3/uL (0.0-0.2) Sodium Level 140 mmol/L (136-145) 141 mmol/L (136-145) Potassium Level 4.0 mmol/L (3.5-5.1) 5.0 mmol/L (3.5-5.1) Chloride Level 104 mmol/L (98-107) 104 mmol/L (98-107) Carbon Dioxide Level 28 mmol/L (21-32) 28 mmol/L (21-32) Anion Gap 8 (6-14) 9 (6-14) Blood Urea Nitrogen 10 mg/dL (8-26) 12 mg/dL (8-26) Creatinine 0.8 mg/dL (0.7-1.3) 0.9 mg/dL (0.7-1.3) Estimated GFR (Cockcroft-Gault) 96.7 84.4 Glucose Level 109 mg/dL (70-99) 101 mg/dL (70-99) Calcium Level 8.6 mg/dL (8.5-10.1) 9.2 mg/dL (8.5-10.1) BUN/Creatinine Ratio 13 (6-20) Total Bilirubin 0.3 mg/dL (0.2-1.0) Aspartate Amino Transf (AST/SGOT) 29 U/L (15-37) Alanine Aminotransferase (ALT/SGPT) 43 U/L (16-63) Alkaline Phosphatase 81 U/L (46-116) Total Protein 7.0 g/dL (6.4-8.2) Albumin 2.3 g/dL (3.4-5.0) Albumin/Globulin Ratio 0.5 (1.0-1.7) Laboratory Tests Test 02/19/17 04:50 White Blood Count 11.3 x10^3/uL (4.0-11.0) Red Blood Count 4.45 x10^6/uL (4.30-5.70) Hemoglobin 13.0 g/dL (13.0-17.5) Hematocrit 40.3 % (39.0-53.0) Mean Corpuscular Volume 91 fL (79-100) Mean Corpuscular Hemoglobin 29 pg (25-35) Mean Corpuscular Hemoglobin Concent 32 g/dL (31-37) Red Cell Distribution Width 14.0 % (11.5-14.5) Platelet Count 477 x10^3/uL (140-400) Neutrophils (%) (Auto) 64 % (31-73) Lymphocytes (%) (Auto) 22 % (24-48) Monocytes (%) (Auto) 12 % (0-9) Eosinophils (%) (Auto) 2 % (0-3) Basophils (%) (Auto) 1 % (0-3) Neutrophils # (Auto) 7.2 x10^3uL (1.8-7.7) Lymphocytes # (Auto) 2.5 x10^3/uL (1.0-4.8) Monocytes # (Auto) 1.4 x10^3/uL (0.0-1.1) Eosinophils # (Auto) 0.2 x10^3/uL (0.0-0.7) Basophils # (Auto) 0.1 x10^3/uL (0.0-0.2) Sodium Level 141 mmol/L (136-145) Potassium Level 5.0 mmol/L (3.5-5.1) Chloride Level 104 mmol/L (98-107) Carbon Dioxide Level 28 mmol/L (21-32) Anion Gap 9 (6-14) Blood Urea Nitrogen 12 mg/dL (8-26) Creatinine 0.9 mg/dL (0.7-1.3) Estimated GFR (Cockcroft-Gault) 84.4 BUN/Creatinine Ratio 13 (6-20) Glucose Level 101 mg/dL (70-99) Calcium Level 9.2 mg/dL (8.5-10.1) Total Bilirubin 0.3 mg/dL (0.2-1.0) Aspartate Amino Transf (AST/SGOT) 29 U/L (15-37) Alanine Aminotransferase (ALT/SGPT) 43 U/L (16-63) Alkaline Phosphatase 81 U/L (46-116) Total Protein 7.0 g/dL (6.4-8.2) Albumin 2.3 g/dL (3.4-5.0) Albumin/Globulin Ratio 0.5 (1.0-1.7) Microbiology 02/13/17 Blood Culture - Final, Complete 02/13/17 Blood Culture Result 1 (JOCELINE) - Final, Complete 02/13/17 Antimicrobic Susceptibility - Final, Complete Medications Current Medications Albuterol Sulfate (Ventolin Neb Soln) 2.5 mg 1X ONCE NEB Last administered on 02/13/17 12:17; Start 02/13/17 at 12:15; Stop 02/13/17 at 12:16; Status DC Albuterol Sulfate (Ventolin Neb Soln) 2.5 mg STK-MED ONCE .ROUTE ; Start at 12:16; Stop 02/13/17 at 12:17; Status DC Ceftriaxone Sodium 50 ml @ 100 mls/hr 1X ONCE IV Last administered on 15:02; Start 02/13/17 at 13:00; Stop 02/13/17 at 13:29; Status DC Azithromycin 250 ml @ 250 mls/hr 1X ONCE IV Last administered on 02/13/17 13:56; Start 02/13/17 at 13:00; Stop 02/13/17 at 13:59; Status DC Sodium Chloride 1,000 ml @ 1,000 mls/hr Q1H IV Last administered on 16:12; Start 02/13/17 at 15:12; Stop 02/13/17 at 17:11; Status DC Ibuprofen (Motrin) 400 mg PRN Q6HRS PRN PO INFLAMMATION Last administered on 21:21; Start 02/13/17 at 15:45 Info (Do NOT chart on this placeholder) 1 each PRN 1X PRN MC SEE COMMENTS; Start 02/13/17 at 17:45; Status UNV Pneumococcal Polyvalent Vaccine (Do NOT chart on this placeholder) 1 each PRN 1X PRN MC SEE COMMENTS; Start 02/13/17 at 17:45; Status UNV Influenza Virus Vaccine Quadrival (Fluarix Quad [id number] Syringe) 0.5 ml ONCE ONCE VAX IM ; Start 02/13/17 at 18:00; Stop 02/13/17 at 18:01; Status DC Azithromycin 500 mg/Sodium Chloride 250 ml @ 250 mls/hr Q24H IV ; Start at 16:00; Stop 02/14/17 at 16:00; Status DC Levofloxacin/ Dextrose 100 ml @ 100 mls/hr Q24H IV Last administered on 14:49; Start 02/14/17 at 16:00; Stop 02/15/17 at 13:27; Status DC Albuterol/ Ipratropium (Duoneb) 3 ml RTQID NEB Last administered on 02/15/17 12:01; Start 02/13/17 at 20:00; Stop 02/15/17 at 13:27; Status DC Vancomycin HCl 1.75 gm/Dextrose/ Sodium Chloride 500 ml @ 500 mls/hr 1X ONCE IV Last administered on 02/14/17 09:19; Start 02/14/17 at 09:00; Stop 02/14 at 09:59; Status DC Vancomycin HCl (Vanco Per Pharmacy) 1 each PRN DAILY PRN MC SEE COMMENTS Last administered on 02/14/17 11:17; Start 02/14/17 at 08:45; Stop 02/15/17 at 09 :11; Status DC Nicotine (Nicoderm Cq 21mg) 1 patch DAILY TD Last administered on 02/19/17 09 :36; Start 02/14/17 at 11:15 Vancomycin HCl 1 gm/Sodium Chloride 250 ml @ 250 mls/hr Q12H IV Last administered on 02/15/17 08:56; Start 02/14/17 at 21:00; Stop 02/15/17 at 09 :11; Status DC Vancomycin HCl 1 each 1X ONCE MC ; Start 02/15/17 at 20:30; Stop 02/15/17 at 20:31; Status Cancel Lactobacillus Rhamnosus (Culturelle) 1 cap BID PO Last administered on 09:36; Start 02/14/17 at 21:00 Iohexol (Omnipaque 300 Mg/ml) 75 ml 1X ONCE IV Last administered on 14:37; Start 02/14/17 at 14:30; Stop 02/14/17 at 14:31; Status DC Info (Do NOT chart on this entry -- for MONITORING) 1 each PRN DAILY PRN MC SEE COMMENTS; Start 02/14/17 at 14:30; Stop 02/16/17 at 14:29; Status DC Albuterol/ Ipratropium (Duoneb) 3 ml Q4HRS W/A NEB Last administered on 11:51; Start 02/15/17 at 14:00 Levofloxacin (Levaquin) 750 mg DAILY06 PO Last administered on 02/19/17 05:42 ; Start 02/16/17 at 15:00 Nicotine (Nicoderm Cq 21mg) 1 patch 1X ONCE TD Last administered on 13:44; Start 02/15/17 at 13:45; Stop 02/15/17 at 13:46; Status DC Active Scripts Active NICODERM CQ 14mg (Nicotine) 1 Each Patch.td24 1 Patch TP DAILY Cipro (Ciprofloxacin Hcl) 500 Mg Tablet 1 Tab PO BID Combivent Respimat Inhal (Ipratropium/Albuterol Sulfate) 4 Gm Aer.w.adap 1 Inh IH QID Vitals/I & O Vital Sign - Last 24 Hours 02/18/17 02/18/17 02/18/17 02/18/17 13:00 15:59 19:00 20:00 Temp 98.1 98.1 Pulse 81 Resp 16 B/P (MAP) 105/69 (81) Pulse Ox 93 O2 Delivery Nasal Cannula Nasal Cannula Nasal Cannula Nasal Cannula O2 Flow Rate 3.0 3.0 3.0 2.0 02/18/17 02/18/17 02/19/17 02/19/17 20:13 23:00 03:00 07:25 Temp 98.0 97.9 98.3 98.0 97.9 98.3 Pulse 85 83 89 Resp 16 16 16 B/P (MAP) 106/69 (81) 99/72 (81) 127/79 (95) Pulse Ox 97 94 90 91 O2 Delivery Nasal Cannula Nasal Cannula Nasal Cannula Nasal Cannula O2 Flow Rate 3.0 3.0 3.0 3.0 02/19/17 02/19/17 02/19/17 02/19/17 08:00 08:08 11:46 11:52 Temp 98.1 98.1 Pulse 87 Resp 16 B/P (MAP) 112/78 (89) Pulse Ox 91 92 O2 Delivery Nasal Cannula Room Air Nasal Cannula Room Air O2 Flow Rate 3.0 3.0 Intake and Output 02/18/17 02/18/17 02/19/17 15:00 23:00 07:00 Intake Total 1150 ml 0 ml Balance 1150 ml 0 ml CASTLE,NIAL K III DO Feb 19, 2017 12:44
--- NOTE | 2017-02-19 15:41 | PDOC ---
PULMONARY PROGRESS NOTES Subjective feels better Vitals Vital Signs Date Time Temp Pulse Resp B/P (MAP) Pulse Ox O2 Delivery O2 Flow Rate FiO2 02/19/17 11:52 Room Air 02/19/17 11:46 98.1 87 16 112/78 (89) 92 3.0 98.1 ROS: No Nausea, No Chest Pain, No Abdominal Pain, No Increase Cough General: Alert, No acute distress Lungs: Other (improving air movement in RU lobe) Cardiovascular: S1 Abdomen: Soft Neuro Exam: Alert Extremities: No Edema Skin: Warm Labs Laboratory Tests Test 02/18/17 04:10 02/19/17 04:50 White Blood Count 12.0 x10^3/uL (4.0-11.0) 11.3 x10^3/uL (4.0-11.0) Red Blood Count 4.12 x10^6/uL (4.30-5.70) 4.45 x10^6/uL (4.30-5.70) Hemoglobin 12.3 g/dL (13.0-17.5) 13.0 g/dL (13.0-17.5) Hematocrit 37.0 % (39.0-53.0) 40.3 % (39.0-53.0) Mean Corpuscular Volume 90 fL (79-100) 91 fL (79-100) Mean Corpuscular Hemoglobin 30 pg (25-35) 29 pg (25-35) Mean Corpuscular Hemoglobin Concent 33 g/dL (31-37) 32 g/dL (31-37) Red Cell Distribution Width 13.9 % (11.5-14.5) 14.0 % (11.5-14.5) Platelet Count 366 x10^3/uL (140-400) 477 x10^3/uL (140-400) Neutrophils (%) (Auto) 62 % (31-73) 64 % (31-73) Lymphocytes (%) (Auto) 20 % (24-48) 22 % (24-48) Monocytes (%) (Auto) 16 % (0-9) 12 % (0-9) Eosinophils (%) (Auto) 2 % (0-3) 2 % (0-3) Basophils (%) (Auto) 0 % (0-3) 1 % (0-3) Neutrophils # (Auto) 7.4 x10^3uL (1.8-7.7) 7.2 x10^3uL (1.8-7.7) Lymphocytes # (Auto) 2.3 x10^3/uL (1.0-4.8) 2.5 x10^3/uL (1.0-4.8) Monocytes # (Auto) 2.0 x10^3/uL (0.0-1.1) 1.4 x10^3/uL (0.0-1.1) Eosinophils # (Auto) 0.2 x10^3/uL (0.0-0.7) 0.2 x10^3/uL (0.0-0.7) Basophils # (Auto) 0.0 x10^3/uL (0.0-0.2) 0.1 x10^3/uL (0.0-0.2) Sodium Level 140 mmol/L (136-145) 141 mmol/L (136-145) Potassium Level 4.0 mmol/L (3.5-5.1) 5.0 mmol/L (3.5-5.1) Chloride Level 104 mmol/L (98-107) 104 mmol/L (98-107) Carbon Dioxide Level 28 mmol/L (21-32) 28 mmol/L (21-32) Anion Gap 8 (6-14) 9 (6-14) Blood Urea Nitrogen 10 mg/dL (8-26) 12 mg/dL (8-26) Creatinine 0.8 mg/dL (0.7-1.3) 0.9 mg/dL (0.7-1.3) Estimated GFR (Cockcroft-Gault) 96.7 84.4 Glucose Level 109 mg/dL (70-99) 101 mg/dL (70-99) Calcium Level 8.6 mg/dL (8.5-10.1) 9.2 mg/dL (8.5-10.1) BUN/Creatinine Ratio 13 (6-20) Total Bilirubin 0.3 mg/dL (0.2-1.0) Aspartate Amino Transf (AST/SGOT) 29 U/L (15-37) Alanine Aminotransferase (ALT/SGPT) 43 U/L (16-63) Alkaline Phosphatase 81 U/L (46-116) Total Protein 7.0 g/dL (6.4-8.2) Albumin 2.3 g/dL (3.4-5.0) Albumin/Globulin Ratio 0.5 (1.0-1.7) Laboratory Tests Test 02/19/17 04:50 White Blood Count 11.3 x10^3/uL (4.0-11.0) Red Blood Count 4.45 x10^6/uL (4.30-5.70) Hemoglobin 13.0 g/dL (13.0-17.5) Hematocrit 40.3 % (39.0-53.0) Mean Corpuscular Volume 91 fL (79-100) Mean Corpuscular Hemoglobin 29 pg (25-35) Mean Corpuscular Hemoglobin Concent 32 g/dL (31-37) Red Cell Distribution Width 14.0 % (11.5-14.5) Platelet Count 477 x10^3/uL (140-400) Neutrophils (%) (Auto) 64 % (31-73) Lymphocytes (%) (Auto) 22 % (24-48) Monocytes (%) (Auto) 12 % (0-9) Eosinophils (%) (Auto) 2 % (0-3) Basophils (%) (Auto) 1 % (0-3) Neutrophils # (Auto) 7.2 x10^3uL (1.8-7.7) Lymphocytes # (Auto) 2.5 x10^3/uL (1.0-4.8) Monocytes # (Auto) 1.4 x10^3/uL (0.0-1.1) Eosinophils # (Auto) 0.2 x10^3/uL (0.0-0.7) Basophils # (Auto) 0.1 x10^3/uL (0.0-0.2) Sodium Level 141 mmol/L (136-145) Potassium Level 5.0 mmol/L (3.5-5.1) Chloride Level 104 mmol/L (98-107) Carbon Dioxide Level 28 mmol/L (21-32) Anion Gap 9 (6-14) Blood Urea Nitrogen 12 mg/dL (8-26) Creatinine 0.9 mg/dL (0.7-1.3) Estimated GFR (Cockcroft-Gault) 84.4 BUN/Creatinine Ratio 13 (6-20) Glucose Level 101 mg/dL (70-99) Calcium Level 9.2 mg/dL (8.5-10.1) Total Bilirubin 0.3 mg/dL (0.2-1.0) Aspartate Amino Transf (AST/SGOT) 29 U/L (15-37) Alanine Aminotransferase (ALT/SGPT) 43 U/L (16-63) Alkaline Phosphatase 81 U/L (46-116) Total Protein 7.0 g/dL (6.4-8.2) Albumin 2.3 g/dL (3.4-5.0) Albumin/Globulin Ratio 0.5 (1.0-1.7) Medications Active Scripts Medications Dose Route/Sig Max Daily Dose Days Date Category Cipro (Ciprofloxacin Hcl) 500 Mg Tablet 1 Tab PO BID 02/15/17 Rx Combivent Respimat Inhal (Ipratropium/Albuterol Sulfate) 4 Gm Aer.w.adap 1 Inh IH QID 02/15/[address] CHEST 1. Extensive right lung infiltrate with dominant involvement of the right upper lobe, compatible with pneumonia. No centrally obstructing mass is seen. Further imaging follow-up is suggested to exclude an occult neoplasm. 2. Small right pleural effusion with moderate right basilar atelectasis. 3. Emphysema. 4. Borderline enlarged mediastinal lymph nodes are probably reactive. Impression . 1. Pneumonia 2. Acute hypoxic respiratory failure secondary AECOPD and pneumonia 3. Abnormal chest x-ray with right upper lobe consolidation, right hilar fullness. Less likely postobstructive process, CT chest reviewed, no central mass 4. Suspected underlying chronic obstructive pulmonary disease. 5. Bacteremia, strep.pneumo Plan . CXR has improved NEEDS HOME 02 change to oral antibx and c/c in am follow up in my office in Apr SUSAN KELLOGG MD Feb 19, 2017 15:41
== END 2017-02-19 16:00 | disposition home or self-care (01) | DRG 871 ==
LOC: ER 11:25 → 6 SOUTH 14:06
PROVIDERS: ADMIT Internal Medicine Hematology & Oncology; ATTEND Internal Medicine Hematology & Oncology
DX: A41.9 Sepsis, unspecified organism (principal); J18.9 Pneumonia, unspecified organism; J96.01 Acute respiratory failure with hypoxia; J44.0 Chronic obstructive pulmonary disease with (acute) lower respiratory infection; J44.1 Chronic obstructive pulmonary disease with (acute) exacerbation; B95.3 Streptococcus pneumoniae as the cause of diseases classified elsewhere; E86.0 Dehydration; F17.200 Nicotine dependence, unspecified, uncomplicated; Z71.6 Tobacco abuse counseling
CPT/HCPCS: 36415; 71010; 71020; 71260; 80048; 80053; 82962; 83605; 83690; 83880; 84484; 85007; 85025; 85379; 87040; 87205; 90686; 93005; 94620; 94640; 94760; 96365; 96366; J0456; J0690; J1956; J3370; J7030; J7613; J7620; Q9967; 97110; 99285-25